=== PATIENT | male | born 1965 | race Caucasian/White ===

== ENCOUNTER 2017-08-25 19:01 | Emergency (ER) | payer OTHER ==
[~2017-08-25] VITALS: Ht 188 cm; Wt 82.0 kg
[~2017-08-25 19:01] MED LIST: ALBU0.08 INH; ASPI-183 PO; NEBULIZER/ADULT1 KIT; VENTAER INH
[2017-08-25 19:06] VITALS: BP 128/87; PULSE 89; RESP 18; TEMP 99.3; O2SAT 98
[2017-08-25] MEDS ORDERED: CHOLESTEROL MED (19:09)
--- NOTE | 2017-08-25 19:36 | PD ---
HPI Chief Complaint: Respiratory Symptoms Time Seen by Provider: 19:23 Travel History International Travel<30 days: No Contact w/Intl Traveler<30days: No Traveled to known affect area: No History of Present Illness HPI The patient is a 51 year old male who presents to the [facility] emergency department with a history of shortness of breath that worsened 2 days ago. 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 He is using a wheel chair mainly for mobility. He is unsure whether he has had any fevers, however he has had chills. He has had n/v that began 2 days ago that occurs 2 times a day. He has also had loose stool 1 x per day. He denies any blood in his stool. He has had a worsening cough with clear phlegm production. He has had a clear rhinorrhea. He has had a postnasal drip. He has had chest pain that began 2 days ago. It is coming and going. The character of the pain is a tight sensation like he cannot take a deep breath. On review of systems otherwise, the patient denies having any neck pain , abdominal pain, urinary symptoms, or new neurologic symptoms. PCP: 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 upper and lower extremity, hyperlipidemia, and COPD Medical History: Denies Significant Hx (low-dose aspirin daily) Arthritis: No Asthma: Yes (bronchitis) Autoimmune Disease: No Blood Disorders: No Anxiety: No Depression: No Heart Rhythm Problems: No Cancer: No Cardiovascular Problems: No High Cholesterol: No Chest Pain: No Congestive Heart Failure: No COPD: Yes Cerebrovascular Accident: Yes (RIGHT SIDED DEFICIT) Diabetes: No Diminished Hearing: No Endocrine: No GERD: No Genitourinary: No Headaches: No Hepatitis: No Hiatal Hernia: No Hypertension: No Immune Disorder: No Kidney Stones: No Musculoskeletal: Yes (LOW BACK INJURY 2 YEARS AGO ) Neurologic: Yes Psychiatric: No Reproductive: No Respiratory: Yes Immunizations Current: Yes Migraines: No Renal Failure: No Seizures: Yes (FROM ALCOHOL WITHDRAWL) Sickle Cell Disease: No Sleep Apnea: No Thyroid Disease: No Ulcer: No Past Surgical History Narrative Surgical hernia surgery Abdominal Surgery: Yes (HERNIA REPAIR 2014) AICD: No Appendectomy: No Arteriovenous Shunt: No Cardiac Surgery: No Cholecystectomy: No Ear Surgery: No Endocrine Surgery: No Eye Surgery: No Genitourinary Surgery: No Gynecologic Surgery: No Insulin Pump: No Joint Replacement: No Oral Surgery: No Pacemaker: No Thoracic Surgery: No Other Surgery: Yes (HERNIA REPAIR) Social History Alcohol Use: Yes (DAILY- 2 beers per day) Tobacco Use: Yes (1/2-1 PPD) Substance Use: No Allergies-Medications (Allergen,Severity, Reaction): Coded Allergies: No Known Allergies (Verified Allergy, Unknown, 08/25/17) Reported Meds & Prescriptions Reported Meds & Active Scripts Active Nebulizer/Adult Mask (N/A) 1 Kit Kit 1 Kit .ROUTE DIRECTED Ventolin Hfa 18 GM Inh (Albuterol Sulfate) 90 Mcg/Act Aer 2 Puff INH Q4-6H PRN Albuterol Neb (Albuterol Sulfate) 2.5 Mg/3 Ml Neb 2.5 Mg INH Q2HR NEB PRN Reported [Cholesterol Med] Aspirin 325 Mg Tab 325 Mg PO DAILY Review of Systems Except as stated in HPI: all other systems reviewed are Neg General / Constitutional: Positive: Chills, No: Fever Eyes: No: Visual changes HENT: Positive: Rhinorrhea, Congestion, No: Headaches Cardiovascular: Positive: Chest Pain or Discomfort, Dyspnea on exertion Respiratory: Positive: Cough, Shortness of Breath, Wheezing Gastrointestinal: Positive: Nausea, Vomiting, Diarrhea, Changes in Bowel Habits , Loss of Appetite, No: Abdominal Pain, Indigestion Genitourinary: No: Dysuria Musculoskeletal: No: Pain Skin: No Rash Neurologic: Positive: Weakness (generalized fatigue and weakness was sleeping 20 hours a day), No: Focal Abnormalities, Change in Mentation, Slurred Speech, Sensory Disturbance Psychiatric: No: Depression Endocrine: No: Polydipsia Hematologic/Lymphatic: No: Easy Bruising Physical Exam Narrative General: The patient is a well-developed well-nourished male in no acute distress. Head and Neck exam: Head is normocephalic atraumatic. Eyes: EOMI, pupils are equal round and reactive to light. Nose: Midline septum with pink mucous membranes Mouth: Dentition unremarkable. Moist mucus membranes. Posterior oropharynx is erythematous. No tonsillar hypertrophy. Uvula midline. Airway patent. Neck: No palpable lymphadenopathy. No nuchal rigidity. No thyromegaly. Cardiovascular: Regular rate and rhythm without murmurs, gallops, or rubs. Lungs: Clear to auscultation bilaterally. No wheezes, rhonchi, or rales. Abdomen: Soft, without tenderness to palpation in all 4 quadrants of the abdomen. No guarding, rebound, or rigidity. Normal bowel sounds are audible. No tenderness on palpation of McBurney's point. Negative Del Valle's sign. Extremities: No clubbing, cyanosis, or edema. 2+ pulses in all 4 extremities. No calf tenderness on palpation. Back: No spinous process tenderness to palpation. No costovertebral angle tenderness to palpation. Neurologic Exam: The patient has residual paresis of the right upper and right lower extremity. No other new focal findings on neurologic examination. Skin Exam: No rash noted. Intact skin that is warm and dry. Data Data Last Documented VS Vital Signs Date Time Temp Pulse Resp B/P (MAP) Pulse Ox O2 Delivery O2 Flow Rate FiO2 08/25/17 19:41 18 96 Room Air 08/25/17 19:06 99.3 89 128/87 (101) Orders Orders Complete Blood Count With Diff (08/25/17 19:34) Comprehensive Metabolic Panel (08/25/17 19:34) B-Type Natriuretic Peptide (08/25/17 19:34) Act Partial Throm Time (Ptt) (08/25/17 19:34) Prothrombin Time / Inr (Pt) (08/25/17 19:34) Magnesium (Mg) (08/25/17 19:34) Ckmb (Isoenzyme) Profile (08/25/17 19:34) Troponin I (08/25/17 19:34) Urinalysis - C+S If Indicated (08/25/17 19:34) Blood Culture (08/25/17 19:34) Iv Access Insert/Monitor (08/25/17 19:34) Electrocardiogram (08/25/17 19:34) Ecg Monitoring (08/25/17 19:34) Oximetry (08/25/17 19:34) Oxygen Administration (08/25/17 19:34) Chest, Single Ap (08/25/17 19:34) Sodium Chloride 0.9% Flush (Ns Flush) (08/25/17 19:45) Sodium Chlorid 0.9% 500 Ml Inj (Ns 500 M (08/25/17 20:15) Ondansetron Inj (Zofran Inj) (08/25/17 20:15) Nitroglycerin 2% Oint (Nitroglycerin 2% (08/25/17 20:15) Nitroglycerin Sl (Nitrostat Sl) (08/25/17 20:15) CKMB (08/25/17 19:56) CKMB% (08/25/17 19:56) Levofloxacin (Levaquin) (08/25/17 22:00) Prednisone (Deltasone) (08/25/17 22:00) Ed Discharge Order (08/25/17 21:51) Labs Laboratory Tests Test 08/25/17 19:56 White Blood Count 5.9 TH/MM3 Red Blood Count 5.59 MIL/MM3 Hemoglobin 17.9 GM/DL Hematocrit 51.6 % Mean Corpuscular Volume 92.4 FL Mean Corpuscular Hemoglobin 32.1 PG Mean Corpuscular Hemoglobin Concent 34.8 % Red Cell Distribution Width 15.1 % Platelet Count 172 TH/MM3 Mean Platelet Volume 7.7 FL Neutrophils (%) (Auto) 44.1 % Lymphocytes (%) (Auto) 41.4 % Monocytes (%) (Auto) 10.8 % Eosinophils (%) (Auto) 2.6 % Basophils (%) (Auto) 1.1 % Neutrophils # (Auto) 2.6 TH/MM3 Lymphocytes # (Auto) 2.4 TH/MM3 Monocytes # (Auto) 0.6 TH/MM3 Eosinophils # (Auto) 0.2 TH/MM3 Basophils # (Auto) 0.1 TH/MM3 CBC Comment AUTO DIFF Differential Comment AUTO DIFF CONFIRMED Prothrombin Time 10.0 SEC Prothromb Time International Ratio 1.0 RATIO Activated Partial Thromboplast Time 29.1 SEC Urine Color LIGHT-YELLOW Urine Turbidity CLEAR Urine pH 6.5 Urine Specific Boomer 1.002 Urine Protein NEG mg/dL Urine Glucose (UA) NEG mg/dL Urine Ketones NEG mg/dL Urine Occult Blood NEG Urine Nitrite NEG Urine Bilirubin NEG Urine Urobilinogen LESS THAN 2.0 MG/DL Urine Leukocyte Esterase NEG Urine WBC LESS THAN 1 /hpf Microscopic Urinalysis Comment CULT NOT INDICATED Blood Urea Nitrogen 3 MG/DL Creatinine 0.55 MG/DL Random Glucose 89 MG/DL Total Protein 6.9 GM/DL Albumin 3.4 GM/DL Calcium Level 7.9 MG/DL Magnesium Level 1.8 MG/DL Alkaline Phosphatase 55 U/L Aspartate Amino Transf (AST/SGOT) 177 U/L Alanine Aminotransferase (ALT/SGPT) 125 U/L Total Bilirubin 0.5 MG/DL Sodium Level 133 MEQ/L Potassium Level 3.7 MEQ/L Chloride Level 97 MEQ/L Carbon Dioxide Level 23.1 MEQ/L Anion Gap 13 MEQ/L Estimat Glomerular Filtration Rate 157 ML/MIN Total Creatine Kinase 182 U/L Creatine Kinase MB 1.5 NG/ML Troponin I LESS THAN 0.02 NG/ML B-Type Natriuretic Peptide 5 PG/ML MDM Medical Decision Making Medical Screen Exam Complete: Yes Emergency Medical Condition: Yes Medical Record Reviewed: Yes Differential Diagnosis COPD exacerbation, versus pneumonia, versus viral syndrome, versus acute coronary syndrome Narrative Course During the course of the patients emergency department visit, the patients history, examination, and differential diagnosis were reviewed with the patient. The patient was placed on a child monitor with oximetry and frequent blood pressure monitoring. The patient had IV access obtained and blood work sent for analysis. The patient had an ECG done on arrival. The patient's ECG shows a sinus rhythm with a heart rate of 88, QRS duration is 94 ms, QTC 389 ms , no acute ST segment elevation is noted. T waves are inverted in V1, V2 The patient was initially provided normal saline a 500 mL bolus 1, Zofran 4 mg IV. The patient was given Levaquin 500 mg by mouth, prednisone 20 mg by mouth 1 for COPD exacerbation associated with bronchitis. The patients laboratory studies were reviewed and remarkable for white count of 5.9, hemoglobin 17.9, platelets 172 with 10.8 monocytes, CMP is remarkable for sodium of 133, chloride 97, BUN 3, creatinine 0.55, calcium 7.9, AST 177, ALT 125 in a pattern to suggest alcohol-related hepatitis, this prior blood work reveals an elevation to his AST in the past. He reports that he was previously not drinking alcohol, however over the holidays he began to drink again. He is encouraged to quit drinking alcohol. CPK 182, troponin I less than 0.02, BNP 5 , PT PTT within normal limits. Urinalysis within normal limits. Radiology studies were reviewed and remarkable for a chest x-ray that shows no acute cardiopulmonary disease. The patient's symptoms are most consistent with a COPD exacerbation and bronchitis. The patient is encouraged to quit smoking and avoid alcohol use. He is instructed regarding the importance of close follow-up with his primary care physician for reexamination in the next 2 days. The patient is resting comfortably and feels better, is alert and in no distress. The patients results and examination findings were discussed with the patient. The repeat examination is unremarkable and benign. The history, exam, diagnostic testing, and current condition do not suggest any significant pathology to warrant further testing, continued ED treatment, admission, or surgical evaluation at this point. The vital signs have been stable. The patient does not have uncontrollable pain, intractable vomiting, or other significant symptoms. The patient's condition is stable and appropriate for discharge. The patient will pursue further outpatient evaluation with a primary care physician or other designated or consulting physician as indicated in the discharge instructions. The patient expressed understanding and was agreeable with this plan. Diagnosis Primary Impression: COPD exacerbation Additional Impression: Bronchitis Referrals: Primary Care Physician 2 days Patient Instructions: Acute Bronchitis (ED), Acute Nausea and Vomiting (ED), COPD (Chronic Obstructive Pulmonary Disease) (ED), General Instructions Med/Other Pt SpecificInfo: Prescription(s) given Scripts Promethazine (Phenergan) 25 Mg Tablet 25 MG PO Q8HR Y for NAUSEA OR VOMITING, #7 TAB 0 Refills Prov: Chloé Jeffers MD 08/25/17 Prednisone (Prednisone) 20 Mg Tab 20 MG PO BID for 5 Days, #10 TAB 0 Refills Prov: Chloé Jeffers MD 08/25/17 Levofloxacin (Levaquin) 500 Mg Tablet 500 MG PO DAILY for Infection, #9 TAB 0 Refills Prov: Chloé Jeffers MD 08/25/17 Disposition: 01 DISCHARGE HOME Condition: Stable Chloé Jeffers MD Aug 25, 2017 19:36
[2017-08-25 19:41] VITALS: RESP 18; O2SAT 96
[2017-08-25] MEDS ORDERED: SODIUM CHLORIDE 0.9% FLUSH 10 ML FLUSH IVF PRN (19:45)
--- NOTE | 2017-08-25 20:06 | RADRPT ---
EXAM DATE/TIME: 08/25/2017 19:48 [facility] COMPARISON: CHEST SINGLE AP, June 30, 2016, 12:25. INDICATIONS : Chest pain. MEDICAL HISTORY : None. SURGICAL HISTORY : None. ENCOUNTER: Initial ACUITY: 1 day PAIN SCORE: 8/10 LOCATION: Left upper chest FINDINGS: A single view of the chest demonstrates the lungs to be symmetrically aerated without evidence of mas s, infiltrate or effusion. The cardiomediastinal contours are unremarkable. Osseous structures are intact. CONCLUSION: No acute disease. Omkar Mccray MD on August 25, 2017 at 20:04 Board Certified Radiologist. This report was verified electronically.
[2017-08-25 20:12] LABS: AUTOMATED NEUTROPHIL # 2.6 TH/MM3 (1.8-7.7); BASOPHIL # 0.1 TH/MM3 (0-0.2); BASOPHIL % 1.1 % (0.0-2.0); EOSINOPHIL # 0.2 TH/MM3 (0-0.4); EOSINOPHIL % 2.6 % (0.0-4.0); HEMATOCRIT 51.6 % (39.0-51.0); HEMOGLOBIN 17.9 GM/DL (13.0-17.0); LYMPH % 41.4 % (9.0-44.0); LYMPHOCYTE # 2.4 TH/MM3 (1.0-4.8); MEAN CELL VOLUME 92.4 FL (80.0-100.0); MEAN CORPUSCULAR HEMOGLOBIN 32.1 PG (27.0-34.0); MEAN CORPUSCULAR HGB CONC 34.8 % (32.0-36.0); MEAN PLATELET VOLUME 7.7 FL (7.0-11.0); MONO % 10.8 % (0.0-8.0); MONOCYTE # 0.6 TH/MM3 (0-0.9); NEUT % 44.1 % (16.0-70.0); PLATELET COUNT 172 TH/MM3 (150-450); RED BLOOD COUNT 5.59 MIL/MM3 (4.50-5.90); RED CELL DISTRIBUTION WIDTH 15.1 % (11.6-17.2); WHITE BLOOD COUNT 5.9 TH/MM3 (4.0-11.0)
[2017-08-25] MEDS ORDERED: NITROGLYCERIN 0.4 MG SL 25 TABS/BTL SL PRN (20:15)
[2017-08-25] MEDS ORDERED: SODIUM CHLORID 0.9% 500 ML INJ 500 ML IV ONE (20:15)
[2017-08-25] MEDS ORDERED: ONDANSETRON HCL 4 MG/2 ML VIAL IV PUSH ONE (20:15)
[2017-08-25] MEDS ORDERED: NITROGLYCERIN 2% OINT 1 GM PACKET TOPICAL ONE (20:15)
[2017-08-25 20:21] LABS: BILIRUBIN, URINE NEG (NEG); BLOOD, URINE NEG (NEG); GLUCOSE,URINE NEG (NEG); KETONE, URINE NEG (NEG); NITRITE,URINE NEG (NEG); PH, URINE 6.5 (5.0-8.5); URINE COLOR LIGHT-YELLOW (YELLW/STRAW); URINE LEUKOCYTE ESTERASE NEG (NEG)
[2017-08-25 20:37] LABS: ALT (GPT) 125 U/L (12-78)
[2017-08-25 20:38] LABS: ALBUMIN 3.4 GM/DL (3.4-5.0); AST (GOT) 177 U/L (15-37); BICARBONATE 23.1 MEQ/L (21.0-32.0); BLOOD UREA NITROGEN 3 MG/DL (7-18); CALCIUM 7.9 MG/DL (8.5-10.1); CHLORIDE 97 MEQ/L (98-107); CREATININE 0.55 MG/DL (0.60-1.30); GLOMERULAR FILTRATION RATE 157 ML/MIN (>89); GLUCOSE,RANDOM 89 MG/DL (74-106); MAGNESIUM 1.8 MG/DL (1.5-2.5); SODIUM (NA) 133 MEQ/L (136-145)
[2017-08-25 20:41] LABS: ALKALINE PHOSPHATASE 55 U/L (45-117); TOTAL BILIRUBIN ADULT 0.5 MG/DL (0.2-1.0); TOTAL PROTEIN 6.9 GM/DL (6.4-8.2); TROPONIN I LESS THAN 0.02 NG/ML (0.02-0.05)
[2017-08-25] MEDS ORDERED: PRED20 PO (21:57)
[2017-08-25] MEDS ORDERED: PROM25TA10 PO (21:57)
[2017-08-25] MEDS ORDERED: LEVA500T33 PO (21:57)
[2017-08-25] MEDS ORDERED: predniSONE 20 MG TAB PO ONE (22:00)
[2017-08-25] MEDS ORDERED: LEVOFLOXACIN 500 MG TAB PO ONE (22:00)
[2017-08-25 22:05] VITALS: BP 114/71; PULSE 77; RESP 18; O2SAT 97
--- NOTE | 2017-08-27 12:39 | EKG ---
Date Performed: 08/25/2017 Time Performed: 19:10:17 PTAGE: 51 years EKG: Sinus rhythm ANTEROSEPTAL MYOCARDIAL INFARCTION Compared to prior tracing no significant change ABNORMAL ECG PREVIOUS TRACING : 06/30/2016 14.11 DOCTOR: Kiko Jeffers Interpretating Date/Time 08/27/2017 12:38:38
== END 2017-08-25 22:25 | disposition home or self-care (01) ==
LOC: NEPC 19:01
DX: J44.1 Chronic obstructive pulmonary disease with (acute) exacerbation (principal); J40 Bronchitis, not specified as acute or chronic; R94.31 Abnormal electrocardiogram [ECG] [EKG]
CPT/HCPCS: 71010; 80053; 81001; 82550; 82552; 83735; 83880; 84484; 85025; 85610; 85730; 87040; 93005; 96361; 96374; 99285; J2405; J7040; J7512

== ENCOUNTER 2017-09-02 09:45 | Emergency (ER) | payer OTHER ==
[~2017-09-02] VITALS: Ht 188 cm; Wt 78.0 kg
[~2017-09-02 09:45] MED LIST changes: +CHOLESTEROL MED; +LEVA500T33 PO; +PRED20 PO; +PROM25TA10 PO
--- NOTE | 2017-09-02 09:52 | PD ---
HPI Chief Complaint: toe discoloration Time Seen by Provider: 09:51 Travel History International Travel<30 days: No Contact w/Intl Traveler<30days: No Traveled to known affect area: No History of Present Illness HPI 51-year-old male came to the emergency room brought by EMS since this morning after he woke up his noticed that the first 3 toes of his right foot were looking purple in color. Patient was concerned about gangrene and hence 911 was called. He has history of stroke that has left him hemiplegic on the right side. He has no sensation on the right side including his right legs. He does not appear to be in any distress currently. Patient was slightly tachycardic upon arrival. Patient says that in the past 2 days he's been having a large runs. No history of vomiting. PFSH Past Medical History Narrative Medical List of his past medical, surgical, social and family history is reviewed from the nursing note. Arthritis: No Asthma: Yes (bronchitis) Autoimmune Disease: No Blood Disorders: No Anxiety: No Depression: No Heart Rhythm Problems: No Cancer: No Cardiovascular Problems: No High Cholesterol: No Chest Pain: No Congestive Heart Failure: No COPD: Yes Cerebrovascular Accident: Yes (RIGHT SIDED DEFICIT) Diabetes: No Diminished Hearing: No Endocrine: No GERD: No Genitourinary: No Headaches: No Hepatitis: No Hiatal Hernia: No Hypertension: No Immune Disorder: No Kidney Stones: No Musculoskeletal: Yes (LOW BACK INJURY 2 YEARS AGO ) Neurologic: Yes Psychiatric: No Reproductive: No Respiratory: Yes Immunizations Current: Yes Migraines: No Renal Failure: No Seizures: Yes (FROM ALCOHOL WITHDRAWL) Sickle Cell Disease: No Sleep Apnea: No Thyroid Disease: No Ulcer: No Past Surgical History Abdominal Surgery: Yes (HERNIA REPAIR 2014) AICD: No Appendectomy: No Arteriovenous Shunt: No Cardiac Surgery: No Cholecystectomy: No Ear Surgery: No Endocrine Surgery: No Eye Surgery: No Genitourinary Surgery: No Gynecologic Surgery: No Insulin Pump: No Joint Replacement: No Oral Surgery: No Pacemaker: No Thoracic Surgery: No Other Surgery: Yes (HERNIA REPAIR) Social History Alcohol Use: Yes (DAILY- 2 beers per day) Tobacco Use: Yes (12-1 PPD) Substance Use: No Allergies-Medications (Allergen,Severity, Reaction): Coded Allergies: No Known Allergies (Verified Allergy, Unknown, 09/02/17) Comments No known drug allergies. Reported Meds & Prescriptions Reported Meds & Active Scripts Active Phenergan (Promethazine HCl) 25 Mg Tablet 25 Mg PO Q8HR PRN Prednisone 20 Mg Tab 20 Mg PO BID 5 Days Levaquin (Levofloxacin) 500 Mg Tablet 500 Mg PO DAILY Nebulizer/Adult Mask (N/A) 1 Kit Kit 1 Kit .ROUTE DIRECTED Ventolin Hfa 18 GM Inh (Albuterol Sulfate) 90 Mcg/Act Aer 2 Puff INH Q4-6H PRN Albuterol Neb (Albuterol Sulfate) 2.5 Mg/3 Ml Neb 2.5 Mg INH Q2HR NEB PRN Reported [Cholesterol Med] Aspirin 325 Mg Tab 81 Mg PO DAILY Narrative Medication List of his home medications reviewed from the nursing note. Review of Systems Except as stated in HPI: all other systems reviewed are Neg Physical Exam Narrative GENERAL: Awake, alert, no obvious distress SKIN: Focused skin assessment warm/dry. Slight duskiness of the right foot first 3 toes. Cap refill is 4 seconds. HEAD: Atraumatic. Normocephalic. EYES: Pupils equal and round. No scleral icterus. No injection or drainage. ENT: No nasal bleeding or discharge. Mucous membranes pink and moist. NECK: Trachea midline. No JVD. CARDIOVASCULAR: Regular rate and rhythm. No murmur appreciated. RESPIRATORY: No accessory muscle use. Clear to auscultation. Breath sounds equal bilaterally. GASTROINTESTINAL: Abdomen soft, non-tender, nondistended. Hepatic and splenic margins not palpable. MUSCULOSKELETAL: No obvious deformities. No clubbing. No cyanosis. No edema. Faint dorsalis pedis pulses through Doppler. NEUROLOGICAL: Awake and alert. No obvious cranial nerve deficits. Motor grossly within normal limits. Normal speech. PSYCHIATRIC: Appropriate mood and affect; insight and judgment normal. Data Data Last Documented VS Vital Signs Date Time Temp Pulse Resp B/P (MAP) Pulse Ox O2 Delivery O2 Flow Rate FiO2 09/02/17 15:48 09/02/17 14:48 99.6 90 19 97 Room Air Orders Orders Electrocardiogram (09/02/17 10:04) Basic Metabolic Panel (Bmp) (09/02/17 10:04) Ckmb (Isoenzyme) Profile (09/02/17 10:04) Complete Blood Count With Diff (09/02/17 10:04) Magnesium (Mg) (09/02/17 10:04) Prothrombin Time / Inr (Pt) (09/02/17 10:04) Troponin I (09/02/17 10:04) Chest, Single Ap (09/02/17 10:04) Ecg Monitoring (09/02/17 10:04) Bilateral Bp Monitoring (09/02/17 10:04) Iv Access Insert/Monitor (09/02/17 10:04) Oximetry (09/02/17 10:04) Oxygen Administration (09/02/17 10:04) Sodium Chloride 0.9% Flush (Ns Flush) (09/02/17 10:15) Sodium Chlor 0.9% 1000 Ml Inj (Ns 1000 M (09/02/17 10:15) Cta Runoff W Iv Contrast W 3d (09/02/17 ) Iohexol 350 Inj (Omnipaque 350 Inj) (09/02/17 14:21) Ed Discharge Order (09/02/17 15:09) Labs Laboratory Tests Test 09/02/17 10:12 09/02/17 11:47 White Blood Count 5.4 TH/MM3 Red Blood Count 5.55 MIL/MM3 Hemoglobin 17.9 GM/DL Hematocrit 51.9 % Mean Corpuscular Volume 93.5 FL Mean Corpuscular Hemoglobin 32.2 PG Mean Corpuscular Hemoglobin Concent 34.4 % Red Cell Distribution Width 15.2 % Platelet Count 120 TH/MM3 Mean Platelet Volume 8.6 FL Neutrophils (%) (Auto) 63.4 % Lymphocytes (%) (Auto) 22.7 % Monocytes (%) (Auto) 11.4 % Eosinophils (%) (Auto) 2.0 % Basophils (%) (Auto) 0.5 % Neutrophils # (Auto) 3.4 TH/MM3 Lymphocytes # (Auto) 1.2 TH/MM3 Monocytes # (Auto) 0.6 TH/MM3 Eosinophils # (Auto) 0.1 TH/MM3 Basophils # (Auto) 0.0 TH/MM3 CBC Comment DIFF FINAL Differential Comment Prothrombin Time 9.9 SEC Prothromb Time International Ratio 1.0 RATIO Blood Urea Nitrogen 4 MG/DL Creatinine 0.52 MG/DL Random Glucose 83 MG/DL Calcium Level 7.8 MG/DL Magnesium Level 2.0 MG/DL Sodium Level 139 MEQ/L Potassium Level 3.6 MEQ/L Chloride Level 107 MEQ/L Carbon Dioxide Level 21.6 MEQ/L Anion Gap 10 MEQ/L Estimat Glomerular Filtration Rate 168 ML/MIN Total Creatine Kinase 91 U/L Troponin I LESS THAN 0.02 NG/ML MDM Medical Decision Making Medical Screen Exam Complete: Yes Emergency Medical Condition: Yes Medical Record Reviewed: Yes Interpretation(s) Twelve-lead EKG was reviewed by me. Normal sinus rhythm, normal axis, nonspecific ST-T wave changes. Heart rate of 79 bpm. Differential Diagnosis Peripheral vascular disease, emboli Narrative Course 1:[address] angiogram of the lower extremities to be done and resulted. Blood test results are within normal limits. 1:[address] scan has been done, awaiting for the report. 3:[address] scan report just came back and looks fine. There are no occlusions. I'll discharge the patient home. 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 Follow-up with your primary care. Return to ER if condition worsens or any other new concerns. Disposition: 01 DISCHARGE HOME Condition: Stable Duran Aburto MD Sep 02, 2017 09:51
[2017-09-02 10:01] VITALS: BP 126/75; PULSE 105; RESP 18; TEMP 99.5; O2SAT 97
[2017-09-02 10:08] VITALS: O2SAT 96
[2017-09-02] MEDS ORDERED: SODIUM CHLORIDE 0.9% FLUSH 10 ML FLUSH IVF PRN (10:15)
[2017-09-02] MEDS ORDERED: SODIUM CHLOR 0.9% 1000 ML INJ 1,000 ML IV ONE (10:15)
[2017-09-02 10:21] LABS: AUTOMATED NEUTROPHIL # 3.4 TH/MM3 (1.8-7.7); BASOPHIL % 0.5 % (0.0-2.0); EOSINOPHIL # 0.1 TH/MM3 (0-0.4); HEMATOCRIT 51.9 % (39.0-51.0); HEMOGLOBIN 17.9 GM/DL (13.0-17.0); LYMPH % 22.7 % (9.0-44.0); LYMPHOCYTE # 1.2 TH/MM3 (1.0-4.8); MEAN CELL VOLUME 93.5 FL (80.0-100.0); MEAN CORPUSCULAR HEMOGLOBIN 32.2 PG (27.0-34.0); MEAN CORPUSCULAR HGB CONC 34.4 % (32.0-36.0); MEAN PLATELET VOLUME 8.6 FL (7.0-11.0); MONO % 11.4 % (0.0-8.0); MONOCYTE # 0.6 TH/MM3 (0-0.9); NEUT % 63.4 % (16.0-70.0); PLATELET COUNT 120 TH/MM3 (150-450); RED BLOOD COUNT 5.55 MIL/MM3 (4.50-5.90); RED CELL DISTRIBUTION WIDTH 15.2 % (11.6-17.2); WHITE BLOOD COUNT 5.4 TH/MM3 (4.0-11.0)
[2017-09-02 10:29] LABS: PROTHROMBIN TIME - PATIENT 9.9 SEC (9.8-11.6)
--- NOTE | 2017-09-02 10:37 | RADRPT ---
EXAM DATE/TIME: 09/02/2017 10:15 [facility] COMPARISON: CHEST SINGLE AP, August 25, 2017, 19:48. INDICATIONS : Cough. MEDICAL HISTORY : Chronic obstructive pulmonary disease. Current smoker. SURGICAL HISTORY : None. ENCOUNTER: Initial ACUITY: 1 day PAIN SCORE: 0/10 LOCATION: Bilateral chest. FINDINGS: A single view of the chest demonstrates the lungs to be symmetrically aerated without evidence of mas s, infiltrate or effusion. The cardiomediastinal contours are unremarkable. Osseous structures are intact. CONCLUSION: No acute disease. Adán Barriga MD on September 02, 2017 at 10:35 Board Certified Radiologist. This report was verified electronically.
[2017-09-02 12:23] LABS: BICARBONATE 21.6 MEQ/L (21.0-32.0); BLOOD UREA NITROGEN 4 MG/DL (7-18); CALCIUM 7.8 MG/DL (8.5-10.1); CHLORIDE 107 MEQ/L (98-107); CREATININE 0.52 MG/DL (0.60-1.30); GLOMERULAR FILTRATION RATE 168 ML/MIN (>89); GLUCOSE,RANDOM 83 MG/DL (74-106); SODIUM (NA) 139 MEQ/L (136-145); TROPONIN I LESS THAN 0.02 NG/ML (0.02-0.05)
[2017-09-02] MEDS ORDERED: IOHEXOL 350 MG/ML 10 ML VIAL (for RAD DIAG) IVCONTRAST ONE (14:21)
[2017-09-02 14:48] VITALS: BP 122/86; PULSE 90; RESP 19; TEMP 99.6; O2SAT 97
--- NOTE | 2017-09-02 14:55 | RADRPT ---
EXAM DATE/TIME: 09/02/2017 13:24 [facility] COMPARISON: No previous studies available for comparison. INDICATIONS : Right toes blackening. Evaluate for occlusion. IV CONTRAST: 100 cc Omnipaque 350 (iohexol) IV RADIATION DOSE: 14.22 CTDIvol (mGy) MEDICAL HISTORY : Chronic obstructive pulmonary disease. Cerebrovascular disease. Right side paralysis SURGICAL HISTORY : Inguinal hernia repair. ENCOUNTER: Initial ACUITY: 3 days PAIN SCALE: 0/10 LOCATION: distal TECHNIQUE: Volumetric scanning was performed using a multi-row detector CT scanner. The data was post processed with a variety of visualization algorithms including full volume maximum intensity projection, multi -planar sliding thin slab reformation, curved planar reformation, and surface rendering techniques. Using automated exposure control and adjustment of the mA and/or kV according to patient size, radiat ion dose was kept as low as reasonably achievable to obtain optimal diagnostic quality images. DICO M format image data is available electronically for review and comparison. FINDINGS: The liver and spleen are free of focal defects. The gallbladder and pancreas demonstrate no abnormali ty. The adrenal glands are normal. The kidneys demonstrate no evidence of solid renal mass or hydrone phrosis. No free fluid or abdominal masses are identified. No para-aortic adenopathy is seen. Examina tion of the pelvis demonstrates no evidence of free fluid or pelvic mass. No abnormally enlarged ingu inal or retroperitoneal lymph nodes are present. The bladder is unremarkable. There is diverticulosis without evidence of diverticulitis. The aorta is normal in caliber. There is no evidence of aneurysm or dissection. The renal artery orig ins are patent bilaterally. The celiac axis and superior mesenteric artery origins are also patent. T he left gastric artery arises directly from the aorta which can be seen as a normal variation. Examination of the right lower extremity demonstrates no evidence of inflow stenosis. The common femo ral artery is patent. The superficial femoral artery is widely patent. The popliteal segment is unrem arkable. There is three-vessel runoff to the ankle. There are multiple benign cystic areas involving the distal femur extending to the articular surface as well as involving the proximal tibia. The etio logy is uncertain. MRI is recommended for further evaluation if clinically indicated. This can be per formed on an elective basis. Examination of the left lower extremity demonstrates no evidence of inflow stenosis. The common femor al artery is patent. The superficial femoral artery is widely patent. The popliteal segment is unrema rkable. There is three-vessel runoff to the ankle. CONCLUSION: 1. Unremarkable CT angiography of the abdominal aorta and lower extremities. 2. Numerous cystic areas in the distal femur proximal right tibia as above of uncertain etiology. Ple ase see above. Aaron Pendleton MD on September 02, 2017 at 14:46 Board Certified Radiologist. This report was verified electronically.
--- NOTE | 2017-09-03 13:56 | EKG ---
Date Performed: 09/02/2017 Time Performed: 10:41:35 PTAGE: 51 years EKG: POSSIBLE SEPTAL MYOCARDIAL INFARCTION OF UNDETERMINED AGE Since previous tracing, no signif icant change noted ABNORMAL ECG PREVIOUS TRACING : 08/25/2017 19.10 DOCTOR: Joey Massey Interpretating Date/Time 09/03/2017 13:55:31
== END 2017-09-02 15:48 | disposition home or self-care (01) ==
LOC: NEPC 09:45
DX: R23.0 Cyanosis (principal); G81.91 Hemiplegia, unspecified affecting right dominant side; R00.0 Tachycardia, unspecified; R94.31 Abnormal electrocardiogram [ECG] [EKG]; J44.9 Chronic obstructive pulmonary disease, unspecified; Z72.0 Tobacco use; Z72.89 Other problems related to lifestyle
CPT/HCPCS: 71045; 75635; 80048; 82550; 83735; 84484; 85025; 85610; 93005; 96360; 99285; J7030; Q9967

== ENCOUNTER 2018-10-15 13:43 | Inpatient (IN) ==
[2018-10-15 15:09] LABS: Baso # (Auto) 0.1 th/mm3 (0.0-0.2); Baso % (Auto) 1.2 % (0.0-2.0); Eos # (Auto) 0.1 th/mm3 (0.0-0.4); Eos % (Auto) 2.4 % (0.0-4.0); Hematocrit 47.1 % (39.0-51.0); Hemoglobin 16.6 gm/dL (13.0-17.0); Lymph # (Auto) 1.3 th/mm3 (1.0-4.8); Lymph % (Auto) 31.9 % (9.0-44.0); Mean Corpuscular HGB Conc 35.3 % (32.0-36.0); Mean Corpuscular Hemoglobin 34.8 pg (27.0-34.0); Mean Corpuscular Volume 98.5 fL (80.0-100.0); Mono # (Auto) 0.7 th/mm3 (0.0-0.9); Mono % (Auto) 16.3 % (0.0-8.0); Neut % (Auto) 48.2 % (16.0-70.0); Platelet Count 81 th/mm3 (150-450); Red Blood Count 4.79 mil/mm3 (4.50-5.90); White Blood Count 4.2 th/mm3 (4.0-11.0)
[2018-10-15 15:34] LABS: Alanine Aminotransferase 232 U/L (12-78); Albumin 3.6 g/dL (3.4-5.0); Anion Gap 10 meq/L (5-15); Aspartate Aminotransferase 265 U/L (15-37); Blood Urea Nitrogen 2 mg/dL (7-18); Calcium 8.1 mg/dL (8.5-10.1); Carbon Dioxide 21.5 meq/L (21.0-32.0); Chloride 97 meq/L (98-107); Glomerular Filtration Rate Greater Than 89 mL/min (>89); Glucose,Random 81 mg/dL (74-106); Magnesium 1.9 mg/dL (1.5-2.5); Sodium 128 meq/L (136-145)
[2018-10-15 15:35] LABS: Alcohol 175 mg/dL (0-5); Potassium 4.4 meq/L (3.5-5.1)
[2018-10-15 15:38] LABS: Alkaline Phosphatase 63 U/L (45-117); Total Protein 7.5 g/dL (6.4-8.2)
--- NOTE | 2018-10-15 15:48 | ED ---
HPI General Chief Complaint: Psychiatric Symptoms Stated Complaint: Psych eval / [employer] Time Seen by Provider: 10/15/18 14:06 Source: patient and police Mode of arrival: other (police) Limitations: no limitations History of Present Illness HPI Narrative: Patient is a 53-year-old male [facility] under Torrez act for psychiatric evaluation. Patient reports multiple stressors with his family situation. He reports that he has a good home and a good however he argues with his sister and his brother. He states this upsets him because of the only family that he has. He also reports chronic health conditions secondary to having a stroke 3 years ago. He states that he does not have good use of the right side of his body and can no longer care for himself like he used to. This is also very frustrating and depressing to him. He denies any previous suicide attempt. He denies any physical complaints at this time. He denies any new weakness, headaches, shortness of breath, chest pain, abdominal pain, headaches. MD complaint: Reports suicidal ideation and feels depressed Onset (ago): week(s) Duration: changing over time History of same: Yes Relieving factors: none Exacerbating factors: alcohol Context: Reports recent alcohol abuse and significant life stressor Associated psychiatric symptoms: Reports depression and suicidal ideation Associated symptoms: Reports denies other symptoms Treatments prior to arrival: Reports none Related Data Home Medications Medication Instructions Recorded Confirmed aspirin [Janusz Chewable Aspirin] 81 mg PO DAILY 10/15/18 10/15/18 atorvastatin 40 mg PO DAILY 10/15/18 10/15/18 multivitamin 1 tab PO DAILY 10/15/18 10/15/18 omeprazole 20 mg PO BID 10/15/18 10/15/18 Allergies Allergy/AdvReac Type Severity Reaction Status Date / Time No Known Allergies Allergy Verified 10/15/18 16:36 Review of Systems ROS: all other systems reviewed are negative [facility] Medical History Medical History Hyperlipidemia (Acute) Seizure (Acute) Stroke (Acute) Surgical History Surgical History H/O hernia repair (Acute) Social History Social History Substance History: Active Abuse and Past History Second Hand Smoke Exposure: Yes Smoking Status: Current every day smoker Tobacco Type: Cigarettes How Often Do You Have a Drink Containing Alcohol: 4 or more times a week Immunization History Tetanus Immunization: Unsure Exam Narrative Exam Narrative: GENERAL: Slightly disheveled, well-developed, well-nourished, alert male. Presenting in no acute distress. SKIN: Focused skin assessment warm/dry. HEAD: Atraumatic. Normocephalic. EYES: Pupils equal and round. No scleral icterus. No injection or drainage. ENT: No nasal bleeding or discharge. Mucous membranes pink and moist. NECK: Trachea midline. No JVD. CARDIOVASCULAR: Regular rate and rhythm. No murmur appreciated. RESPIRATORY: No accessory muscle use. Clear to auscultation. Breath sounds equal bilaterally. GASTROINTESTINAL: Abdomen soft, non-tender, nondistended. Hepatic and splenic margins not palpable. MUSCULOSKELETAL: No obvious deformities. No clubbing. No cyanosis. No edema. NEUROLOGICAL: Awake and alert. No obvious cranial nerve deficits. Motor grossly within normal limits. Normal speech. PSYCHIATRIC: Depressed mood and affect; insight and judgment normal. Course Initial Documented Vital Signs Temperature 98.3 F 10/15/18 14:03 Pulse Rate 91 H 10/15/18 14:03 Respiratory Rate 16 10/15/18 14:03 Blood Pressure 126/77 10/15/18 14:03 Pulse Oximetry 96 10/15/18 14:03 Last Documented Vital Signs Temperature 97.8 F 10/17/18 06:00 Pulse Rate 75 10/17/18 06:00 Respiratory Rate 15 10/17/18 06:00 Blood Pressure 147/85 H 10/17/18 06:00 Pulse Oximetry 93 L 10/17/18 06:00 Medical Decision Making [facility] Narrative Medical decision making narrative: Patient presented under Torrez act for psychiatric evaluation. Patient reports multiple life stressors including issues with his family relationships with his brother and his sister. He reports that he cannot get around after his stroke like he used to and this is also depressing to him. Mental health screening discussed with the patient. Psychiatric screen ordered. Labs reviewed, no acute findings identified. Patient is medically cleared for psychiatric evaluation. Medical Screen Exam Complete: Yes Emergency Medical Condition: Yes Lab Data Lab results reviewed: Yes I reviewed the patient's lab results. Result diagrams: 10/15/18 14:40 10/16/18 06:25 Lab Results 10/15/18 10/15/18 10/15/18 Range/Units 14:40 14:40 15:30 WBC 4.2 (4.0-11.0) th/mm3 RBC 4.79 (4.50-5.90) mil/mm3 Hgb 16.6 (13.0-17.0) gm/dL Hct 47.1 (39.0-51.0) % MCV 98.5 (80.0-100.0) fL MCH 34.8 H (27.0-34.0) pg MCHC 35.3 (32.0-36.0) % RDW 14.0 (11.6-17.2) % Plt Count 81 L (150-450) th/mm3 MPV 10.0 (7.0-11.0) fL Prelim Diff (Auto) Slide review pending Neut % (Auto) 48.2 (16.0-70.0) % Lymph % (Auto) 31.9 (9.0-44.0) % Baker % (Auto) 16.3 H (0.0-8.0) % Eos % (Auto) 2.4 (0.0-4.0) % Baso % (Auto) 1.2 (0.0-2.0) % Neut # (Auto) 2.0 (1.8-7.7) th/mm3 Lymph # (Auto) 1.3 (1.0-4.8) th/mm3 Baker # (Auto) 0.7 (0.0-0.9) th/mm3 Eos # (Auto) 0.1 (0.0-0.4) th/mm3 Baso # (Auto) 0.1 (0.0-0.2) th/mm3 WBC Differential . Diff Scan Auto diff confirmed Differential Comment . Sodium 128 L (136-145) meq/L Potassium 4.4 (3.5-5.1) meq/L Chloride 97 L (98-107) meq/L Carbon Dioxide 21.5 (21.0-32.0) meq/L Anion Gap 10 (5-15) meq/L BUN 2 L (7-18) mg/dL Creatinine 0.47 L (0.60-1.30) mg/dL Estimated GFR Greater than 89 (>89) mL/min Random Glucose 81 (74-106) mg/dL Hemoglobin A1c (4.3-6.0) % Calcium 8.1 L (8.5-10.1) mg/dL Magnesium 1.9 (1.5-2.5) mg/dL Total Bilirubin 0.8 (0.2-1.0) mg/dL AST 265 H (15-37) U/L ALT 232 H (12-78) U/L Alkaline Phosphatase 63 (45-117) U/L Total Protein 7.5 (6.4-8.2) g/dL Albumin 3.6 (3.4-5.0) g/dL Triglycerides (42-150) mg/dL Cholesterol (120-200) mg/dL LDL Cholesterol, Calc (0-99) mg/dL HDL Cholesterol (40.0-60.0) mg/dL Cholesterol/HDL Ratio Ratio TSH 1.810 (0.358-3.740) uIU/mL Urine Opiates Screen Neg (Neg) Ur Barbiturates Screen Neg (Neg) Ur Amphetamines Screen Neg (Neg) U Benzodiazepines Scrn Neg (Neg) Urine Cocaine Screen Neg (Neg) U Cannabinoids Screen Neg (Neg) Serum Alcohol 175 H (0-5) mg/dL 10/16/18 10/16/18 Range/Units 06:25 06:25 WBC (4.0-11.0) th/mm3 RBC (4.50-5.90) mil/mm3 Hgb (13.0-17.0) gm/dL Hct (39.0-51.0) % MCV (80.0-100.0) fL MCH (27.0-34.0) pg MCHC (32.0-36.0) % RDW (11.6-17.2) % Plt Count (150-450) th/mm3 MPV (7.0-11.0) fL Prelim Diff (Auto) Neut % (Auto) (16.0-70.0) % Lymph % (Auto) (9.0-44.0) % Baker % (Auto) (0.0-8.0) % Eos % (Auto) (0.0-4.0) % Baso % (Auto) (0.0-2.0) % Neut # (Auto) (1.8-7.7) th/mm3 Lymph # (Auto) (1.0-4.8) th/mm3 Baker # (Auto) (0.0-0.9) th/mm3 Eos # (Auto) (0.0-0.4) th/mm3 Baso # (Auto) (0.0-0.2) th/mm3 WBC Differential Diff Scan Differential Comment Sodium 136 (136-145) meq/L Potassium 3.6 D (3.5-5.1) meq/L Chloride 101 (98-107) meq/L Carbon Dioxide 26.8 (21.0-32.0) meq/L Anion Gap 8 (5-15) meq/L BUN 5 L (7-18) mg/dL Creatinine 0.58 L (0.60-1.30) mg/dL Estimated GFR Greater than 89 (>89) mL/min Random Glucose 83 (74-106) mg/dL Hemoglobin A1c 5.8 (4.3-6.0) % Calcium 8.6 (8.5-10.1) mg/dL Magnesium (1.5-2.5) mg/dL Total Bilirubin (0.2-1.0) mg/dL AST (15-37) U/L ALT (12-78) U/L Alkaline Phosphatase (45-117) U/L Total Protein (6.4-8.2) g/dL Albumin (3.4-5.0) g/dL Triglycerides 53 (42-150) mg/dL Cholesterol 159 (120-200) mg/dL LDL Cholesterol, Calc 71 (0-99) mg/dL HDL Cholesterol 77.1 H (40.0-60.0) mg/dL Cholesterol/HDL Ratio 2.06 Ratio TSH (0.358-3.740) uIU/mL Urine Opiates Screen (Neg) Ur Barbiturates Screen (Neg) Ur Amphetamines Screen (Neg) U Benzodiazepines Scrn (Neg) Urine Cocaine Screen (Neg) U Cannabinoids Screen (Neg) Serum Alcohol (0-5) mg/dL Discharge Plan Discharge Disposition Patient Disposition: ED Admit(ED Internal Use Only) Discharge Condition Condition: Stable Discharge Order Discharge Orders: ED Use Only Admit Order (Routine); Ordered 10/15/18 Ordered By: Madeleine Chaves Discharge Details Diagnosis: Medical clearance for psychiatric admission Physicians Team ED Provider: Coleen Wolf ED Midlevel Provider: Gudelia Thomas Primary Care Provider: [facility]ician 's Attending Provider: Darren Glez Status ED Status: Left Department Discharge Information Discharge Date/Time: 10/15/18 17:35
[2018-10-15 16:02] LABS: Amphetamine Screen,Urine Neg (Neg); Barbiturate Screen,Urine Neg (Neg); Cannabinoid Screen,Urine Neg (Neg); Cocaine Screen,Urine Neg (Neg); Opiate Screen,Urine Neg (Neg)
[2018-10-15] MEDS ORDERED: Ibuprofen 600 MG Tablet PO PRN (17:07)
[2018-10-15] MEDS ORDERED: Aluminum/Magnesium/Simethacone Susp 30 ML UDC PO PRN (17:07)
[2018-10-15] MEDS ORDERED: LORazepam 1 MG Tablet PO PRN (17:10)
[2018-10-15] MEDS ORDERED: Haloperidol Inj 5 MG/ML Ampul IM PRN (17:10)
--- NOTE | 2018-10-15 17:19 | ED ---
HPI - Psych - General Time Seen by Psych Provider: 16:52 Source: patient, police Mode of arrival: other (police) Limitations: physical limitation - History of Present Illness MD complaint: suicidal ideation, feels depressed Onset (ago): day(s) Duration: changing over time, getting worse History of same: Yes Relieving factors: none Exacerbating factors: alcohol Context: recent alcohol abuse Associated psychiatric symptoms: depression, suicidal ideation Associated symptoms: denies other symptoms Treatments prior to arrival: none If self harm: admits thoughts of self harm - General Chief Complaint: Psychiatric Symptoms Stated Complaint: Psych eval / [employer] Time Seen by Provider: 10/15/18 14:06 - History of Present Illness HPI Narrative: This is a 53-year-old , hemiplegic, male who presents under police initiated Torrez act to this facility for suicidal ideation. The patient is known to this facility but not to this department. Reviewed electronic medical record, labs, discussed case with staff. Patient initially presented with a blood alcohol level of 0.175. He is seen in his room in B19. Patient is awake, alert, and oriented x4. His speech is clear, logical, organized, of normal luh and volume. He reports intermittent suicidal ideation with no concrete plan at this time. He denies homicidal ideation, auditory and visual hallucinations. I can elicit no delusional material. There is no indication of psychosis nor of kole. He reports his mood is sad and his affect is congruent. Patient reports that he suffered a CVA approximately 3 years ago which left him with extremely limited use of his left side. He states, "I cannot take it anymore and I do not want to live anymore". He denies any previous admissions for psychiatric illness and denies being treated outpatient. He does report an incident 30 years ago when he tried to hang himself. He reports that he is born and raised in [place], lives with his , and is a high school graduate. 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 He denies owning firearms. He denies a familial history of mental illness. He denies any physical or sexual abuse. He reports that he served in the [employer] for approximately 6-1/2 years. He does follow up with the [employer] [facility]. He reports that he has previously been incarcerated for DUIs and child support, but states that his longest time in fdc was approximately 6 days. He lists his external stressors as recent family problems with his father, brother, and sister. He does report chronic alcoholism stating that he drinks 10-12 beers per day and has had seizures years ago in the context of discontinuing alcohol consumption. He reports over the past week experiencing insomnia, decreased appetite, and anhedonia. (Madeleine Chaves) - Related Data Home Medications Medication Instructions Recorded Confirmed aspirin [Janusz Chewable Aspirin] 81 mg PO DAILY 10/15/18 10/15/18 atorvastatin 40 mg PO DAILY 10/15/18 10/15/18 multivitamin 1 tab PO DAILY 10/15/18 10/15/18 omeprazole 20 mg PO BID 10/15/18 10/15/18 Allergies Allergy/AdvReac Type Severity Reaction Status Date / Time No Known Allergies Allergy Verified 10/15/18 16:36 Review of Systems All other systems reviewed negative except as stated in HPI [facility] - History History Provided By: Patient - Medical History Medical History: Medical History (Last Reviewed 10/15/18 @ 17:25 by HARRIET Maldonado) Hyperlipidemia Seizure Stroke - Surgical History Surgical History: Surgical History (Last Reviewed 10/15/18 @ 17:25 by HARRIET Maldonado) H/O hernia repair - Tobacco History Second Hand Smoke Exposure: Yes Tobacco Use In Past 30 Days: Yes Smoking Status: Current every day smoker Tobacco Type: Cigarettes - Alcohol History How Often Do You Have a Drink Containing Alcohol: 4 or more times a week - Substance Use History Substance History: No History of Abuse - Immunization History Tetanus Immunization: Unsure Psychiatric History - Psychiatric History Psychiatric Treatment History: History Substance Abuse Treatment History of Inpatient Treatment: No Firearms in Home: No - Psychiatric History Denies (Madeleine Chaves) - Legal History Short fdc time for DUIs and child support (Madeleine Chaves) - Family Psychiatric History Denies (Madeleine Chaves) Physical Exam - General Limitations: physical limitation General appearance: alert, in no apparent distress - Head Head exam: atraumatic - Neurological Exam Neurological exam: Present: alert, oriented X3 - Psychiatric Psychiatric exam: Present: depressed - Skin Skin exam: Present: warm, dry Mental Status Examination Appearance: Appropriate Consciousness: Alert Orientation: x4 Motor Activity: Other (Hemiplegic) Language: Adequate Fund of Knowledge: Adequate Attention and Concentration: Adequate Memory: Unremarkable Mood: Sad Affect: Sad Thought Process & Associations: Intact, Logical Thought Content: Appropriate Hallucination Type: None Delusion Type: None Suicidal Ideation: Yes Suicidal Plan: No Suicidal Intention: No Homicidal Ideation: No Homicidal Plan: No Homicidal Intention: No Insight: Adequate Judgment: Adequate Initial Documented Vital Signs Temperature 98.3 F 10/15/18 14:03 Pulse Rate 91 H 10/15/18 14:03 Respiratory Rate 16 10/15/18 14:03 Blood Pressure 126/77 10/15/18 14:03 Pulse Oximetry 96 10/15/18 14:03 Last Documented Vital Signs Temperature 98.3 F 10/15/18 14:03 Pulse Rate 88 10/15/18 14:10 Respiratory Rate 16 10/15/18 14:10 Blood Pressure 112/74 10/15/18 14:10 Pulse Oximetry 95 10/15/18 14:10 MDM - Psych - Diagnosis (1) Major depressive disorder Code(s): F32.9 - Major depressive disorder, single episode, unspecified Status : Acute - Lab Data Result diagrams: 10/15/18 14:40 10/15/18 14:40 - [facility] Narrative Medical decision making narrative: Given that this patient is endorsing suicidal ideation and has a significant medical condition which has altered his life I do feel he meets inpatient admission criteria. He is requesting help with his depression. Given his report of previous withdrawal seizures I have entered a [facility] protocol. Verbal consent for as needed hydroxyzine and diphenhydramine were obtained with nurse Deepa Springer signing as witness. These medications will be available to him for anxiety and insomnia respectively. He will be admitted to a locked inpatient psychiatric unit for further evaluation and treatment as deemed necessary. (Madeleine Chaves) - Lab Data Lab Results 10/15/18 10/15/18 10/15/18 Range/Units 14:40 14:40 15:30 WBC 4.2 (4.0-11.0) th/mm3 RBC 4.79 (4.50-5.90) mil/mm3 Hgb 16.6 (13.0-17.0) gm/dL Hct 47.1 (39.0-51.0) % MCV 98.5 (80.0-100.0) fL MCH 34.8 H (27.0-34.0) pg MCHC 35.3 (32.0-36.0) % RDW 14.0 (11.6-17.2) % Plt Count 81 L (150-450) th/mm3 MPV 10.0 (7.0-11.0) fL Prelim Diff (Auto) Slide review pending Neut % (Auto) 48.2 (16.0-70.0) % Lymph % (Auto) 31.9 (9.0-44.0) % [place] % (Auto) 16.3 H (0.0-8.0) % Eos % (Auto) 2.4 (0.0-4.0) % Baso % (Auto) 1.2 (0.0-2.0) % Neut # (Auto) 2.0 (1.8-7.7) th/mm3 Lymph # (Auto) 1.3 (1.0-4.8) th/mm3 [place] # (Auto) 0.7 (0.0-0.9) th/mm3 Eos # (Auto) 0.1 (0.0-0.4) th/mm3 Baso # (Auto) 0.1 (0.0-0.2) th/mm3 WBC Differential . Diff Scan Auto diff confirmed Differential Comment . Sodium 128 L (136-145) meq/L Potassium 4.4 (3.5-5.1) meq/L Chloride 97 L (98-107) meq/L Carbon Dioxide 21.5 (21.0-32.0) meq/L Anion Gap 10 (5-15) meq/L BUN 2 L (7-18) mg/dL Creatinine 0.47 L (0.60-1.30) mg/dL Estimated GFR Greater than 89 (>89) mL/min Random Glucose 81 (74-106) mg/dL Calcium 8.1 L (8.5-10.1) mg/dL Magnesium 1.9 (1.5-2.5) mg/dL Total Bilirubin 0.8 (0.2-1.0) mg/dL AST 265 H (15-37) U/L ALT 232 H (12-78) U/L Alkaline Phosphatase 63 (45-117) U/L Total Protein 7.5 (6.4-8.2) g/dL Albumin 3.6 (3.4-5.0) g/dL TSH 1.810 (0.358-3.740) uIU/mL Urine Opiates Screen Neg (Neg) Ur Barbiturates Screen Neg (Neg) Ur Amphetamines Screen Neg (Neg) U Benzodiazepines Scrn Neg (Neg) Urine Cocaine Screen Neg (Neg) U Cannabinoids Screen Neg (Neg) Serum Alcohol 175 H (0-5) mg/dL
[2018-10-16 07:56] LABS: Anion Gap 8 meq/L (5-15); Blood Urea Nitrogen 5 mg/dL (7-18); Calcium 8.6 mg/dL (8.5-10.1); Carbon Dioxide 26.8 meq/L (21.0-32.0); Chloride 101 meq/L (98-107); Chol/HDL Ratio 2.06 Ratio; Cholesterol 159 mg/dL (120-200); Glomerular Filtration Rate Greater Than 89 mL/min (>89); Glucose,Random 83 mg/dL (74-106); HDL Cholesterol 77.1 mg/dL (40.0-60.0); LDL Cholesterol,Calculated 71 mg/dL (0-99); Potassium 3.6 meq/L (3.5-5.1); Sodium 136 meq/L (136-145); Triglycerides 53 mg/dL (42-150)
[2018-10-16] MEDS: Venlafaxine XR 37.5 MG Capsule PO SCH (14:30)
--- NOTE | 2018-10-16 15:06 | P.HPPSY ---
Provisional Diagnosis Admission Date: October 15, 2018 17:18 [place].: Major depressive disorder Competence Certification of Person's Competence To Provide Express and Informed Consent I have personally examined Praful Moralez, a person being served at [facility] on, October 16, 2018 1506. Express and informed consent means consent voluntarily given in writing, by a competent person, after sufficient explanation and disclosure of the subject matter involved to enable the person to make a knowing and willful decision without any element of force, fraud, deceit, duress, or other form of constraint or coercion. This person is 18 years of age or older, is not now known to be incompetent to consent to treatment with a guardian advocate, and does not have a health care surrogate or proxy currently making medical treatment decisions. I have found this person to be one of the following: [xxx] Competent to provide express and informed consent, as defined above, for voluntary admission to this facility and is competent to provide express and informed consent for treatment. He/she has the consistent capacity to make well reasoned, willful, and knowing decisions concerning his or her medical or mental health treatment. The person fully and consistently understands the purpose of the admission for examination/placement and is fully capable of personally exercising all rights assured under [place] [] Incompetent to provide express and informed consent to voluntary admission, and this is incompetent to provide express and informed consent to treatment. The person must be transferred to involuntary status and a petition for a guardian advocate filed with the Circuit Court. [] Refusing to provide express and informed consent to voluntary admission but is competent to provide express and informed consent for treatment. The person must be discharged or transferred to involuntary status. Form shall be completed within 24 hours of a person's arrival at the receiving facility and filed in the clinical record of each person: 1. Admitted on a voluntary basis 2. Permitted to provide express and informed consent to his/her own treatment 3. Allowed to transfer from involuntary to voluntary status 4. Prior to permitting a person to consent to his or her own treatment after having been previously found incompetent to consent to treatment. 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 Patient was found lying in hospital bed noted with right-sided immobility from hemiplegia, was able to engage in interview adequately today. Patient states that he recently had discord with his family apparently his sister and brother along with feeling "less useful at home" referring to his motor deficits. Patient states that he has been sleeping poorly but noted to be taking naps during the day, with decreased appetite, no change in energy and concentration but did report feeling depressed for the past week as he stated feeling less able to participate in physical activities due to his sequelae from CVA. Patient reports having suicide ideation for the past days stating "tired of living this way"but denies any active plan of wanting to end his life at this time. Patient denying any perceptual services, denies any manic or psychotic symptoms. Patient stated that he has been feeling less motivated with his current mood. Patient denies any SI, HI, AVH or delusions at this time. Family psychiatric history: Denies Past psychiatric history: Denied previous psychiatric diagnoses, denies any previous psychiatric admissions, reports one remote interrupted suicide attempt 30 years ago, no self-injurious behavior, no outpatient mental health provider, no history of abuse. Substance use history: Alcohol use 10-12 beers daily, denying any drug use, reporting tobacco use 1/2 packs/day. Past medical history: CVA 3 years ago with residual right hemiplegia, hyperlipidemia, patient reports history of a seizure secondary to alcohol withdrawal years ago. Allergies: NKDA Social history: , domiciled white, born and raised in [place], , connected to [place], on a routine. Patient has high school education, no asked to firearms. Patient currently on Social Security disability. - Inpatient Certification I certify that the inpatient services were ordered in accordance with Medicare regulations governing the order. This includes certification that hospital inpatient services are reasonable and necessary and in the case of services not specified as inpatient-only under 42 CFR 419.22(n), that they are appropriately provided as inpatient services in accordance to with the 2-midnight benchmark under 43 CFR 412.3(e) I certify that inpatient psychiatric hospital services are medically necessary. Evaluation and treatment and/or diagnostic testing are expected to improve the patient's condition. The patient needs on a daily basis, active treatment furnished directly by or requiring the supervision of inpatient psychiatric facility personnel. Estimated Total Length of Stay (Days): 3 Plans for Post Hospital Care: Home Review of Systems All other systems reviewed negative except as stated in HPI PMFSH - History History Provided By: Patient, Medical Record - Medical History Medical History: Medical History (Last Reviewed 10/15/18 @ 17:25 by HARRIET Maldonado) Hyperlipidemia Seizure Stroke - Surgical History Surgical History: Surgical History (Last Reviewed 10/15/18 @ 17:25 by HARRIET Maldonado) H/O hernia repair - Tobacco History Second Hand Smoke Exposure: Yes Tobacco Use In Past 30 Days: Yes Smoking Status: Current every day smoker Tobacco Type: Cigarettes - Alcohol History How Often Do You Have a Drink Containing Alcohol: 4 or more times a week - Substance Use History Substance History: Active Abuse, Past History - Substance Use Type Alcohol Status: Active Route Used: By Mouth Frequency: 2-3 or more servings per day, every day Last Used: 10/15 Reason for Use: Feels Good Comment: Patient's reports alcohol use has increased after the stroke in 2015, and patient reportedly called the [place] detox in [facility] for treatment in April 2018. Patient reports drinking beer in the morning to help him fall back asleep, drinking beer in the evenings when he watches TV. Patient was arrested with a DUI in both 1984 and 1993 and since then reports being careful not to drink if he's driving. Patient's brother and sister both abuse cocaine and opioids, per report from the patient and his . - Immunization History Tetanus Immunization: Unsure Quality Measures - Psychiatric History Psychological trauma history: Denies Violence risk to others in the last 6 months: low Violence risk to self in the last 6 months: elevated due to recent suicidal ideation - Substance Abuse History Drug or alcohol use in the past 12 months: see HPI - Patient Strengths Patient's strengths (minimum of 2): verbal and communicative Medications and Allergies Active Medications: Active Medications Al Hydrox/Mg Hydrox/Simethicone (Mag-Al Plus Susp Liq) 30 ml PO Q6H PRN PRN Reason: DYSPEPSIA Al Hydroxide/Mg Hydroxide (Milk Of Magnesia Liq) 30 ml PO Q12H PRN PRN Reason: Mild Constipation Diphenhydramine HCl (Benadryl) 50 mg PO HS PRN PRN Reason: INSOMNIA Last Admin: 10/15/18 20:46 Dose: 50 mg Flumazenil (Romazicon Inj) 0.2 mg IV.PUSH Q1M PRN PRN Reason: OVERSEDATION Haloperidol Lactate (Haldol Inj) 1 mg IM Q15M PRN PRN Reason: for severe agitation Hydroxyzine HCl (Atarax) 50 mg PO Q6H PRN PRN Reason: ANXIETY Last Admin: 10/15/18 20:46 Dose: 50 mg Ibuprofen (Motrin) 600 mg PO Q8HR PRN PRN Reason: PAIN SCALE 1 TO 10 Lorazepam (Ativan) 1 mg PO Q4H PRN PRN Reason: for CIWA 8-10 Lorazepam (Ativan Inj) 2 mg IM Q2H PRN PRN Reason: for CIWA 11-14 Lorazepam (Ativan Inj) 2 mg IM Q1H PRN PRN Reason: for CIWA 15-20 Lorazepam (Ativan Inj) 2 mg IM Q15M PRN PRN Reason: for CIWA > 20 Lorazepam (Ativan Inj) 1 mg IM Q4H PRN PRN Reason: for CIWA 8-10 Lorazepam (Ativan) 2 mg PO Q2H PRN PRN Reason: for CIWA 11-14 Nicotine (Habitrol 21 Mg Patch.24 Hr) 1 patch T-DERMAL DAILY [facility] Last Admin: 10/16/18 08:15 Dose: Not Given Venlafaxine HCl (Effexor Xr) 37.5 mg PO DAILY [facility] Last Admin: 10/16/18 14:30 Dose: 37.5 mg Allergies Allergy/AdvReac Type Severity Reaction Status Date / Time No Known Allergies Allergy Verified 10/15/18 16:36 Home Medications Medication Instructions Recorded Confirmed Type aspirin [Janusz Chewable Aspirin] 81 mg PO DAILY 10/15/18 10/15/18 History atorvastatin 40 mg PO DAILY 10/15/18 10/15/18 History multivitamin 1 tab PO DAILY 10/15/18 10/15/18 History omeprazole 20 mg PO BID 10/15/18 10/15/18 History Results - Labs CBC & Chem 7: 10/15/18 14:40 10/16/18 06:25 Labs: Laboratory Results - last 24 hr 10/15/18 10/15/18 10/15/18 14:40 14:40 15:30 WBC 4.2 RBC 4.79 Hgb 16.6 Hct 47.1 MCV 98.5 MCH 34.8 H MCHC 35.3 RDW 14.0 Plt Count 81 L MPV 10.0 Prelim Diff (Auto) Slide review pending Neut % (Auto) 48.2 Lymph % (Auto) 31.9 Schley % (Auto) 16.3 H Eos % (Auto) 2.4 Baso % (Auto) 1.2 Neut # (Auto) 2.0 Lymph # (Auto) 1.3 Schley # (Auto) 0.7 Eos # (Auto) 0.1 Baso # (Auto) 0.1 WBC Differential . Diff Scan Auto diff confirmed Differential Comment . Sodium 128 L Potassium 4.4 Chloride 97 L Carbon Dioxide 21.5 Anion Gap 10 BUN 2 L Creatinine 0.47 L Estimated GFR Greater than 89 Random Glucose 81 Calcium 8.1 L Magnesium 1.9 Total Bilirubin 0.8 AST 265 H ALT 232 H Alkaline Phosphatase 63 Total Protein 7.5 Albumin 3.6 Triglycerides Cholesterol LDL Cholesterol, Calc HDL Cholesterol Cholesterol/HDL Ratio TSH 1.810 Urine Opiates Screen Neg Ur Barbiturates Screen Neg Ur Amphetamines Screen Neg U Benzodiazepines Scrn Neg Urine Cocaine Screen Neg U Cannabinoids Screen Neg Serum Alcohol 175 H 10/16/18 06:25 WBC RBC Hgb Hct MCV MCH MCHC RDW Plt Count MPV Prelim Diff (Auto) Neut % (Auto) Lymph % (Auto) Schley % (Auto) Eos % (Auto) Baso % (Auto) Neut # (Auto) Lymph # (Auto) Schley # (Auto) Eos # (Auto) Baso # (Auto) WBC Differential Diff Scan Differential Comment Sodium 136 Potassium 3.6 D Chloride 101 Carbon Dioxide 26.8 Anion Gap 8 BUN 5 L Creatinine 0.58 L Estimated GFR Greater than 89 Random Glucose 83 Calcium 8.6 Magnesium Total Bilirubin AST ALT Alkaline Phosphatase Total Protein Albumin Triglycerides 53 Cholesterol 159 LDL Cholesterol, Calc 71 HDL Cholesterol 77.1 H Cholesterol/HDL Ratio 2.06 TSH Urine Opiates Screen Ur Barbiturates Screen Ur Amphetamines Screen U Benzodiazepines Scrn Urine Cocaine Screen U Cannabinoids Screen Serum Alcohol Exam Vital signs: Vital Signs 10/15/18 18:00 10/16/18 06:00 Temperature 97.9 F 99.1 F Pulse Rate 85 88 Respiratory Rate 20 16 Blood Pressure 128/79 134/75 Pulse Oximetry 94 L 95 Intake & Output 10/15/18 10/16/18 10/16/18 18:59 06:59 18:59 Intake Total 240 / 240 Balance 240 / 240 Weight 78.925 kg 63.4 kg Intake: Oral 240 / 240 Other: Weight On Admission 63.4 kg Narrative: Patient noted with RT hemiplegia, no tremor or EPS, no psychomotor agitation or retardation - Constitutional no acute distress, cooperative Mental Status Examination Appearance: Appropriate Consciousness: Alert Orientation: x4 Motor Activity: Other (Hemiplegic) Language: Adequate Fund of Knowledge: Adequate Attention and Concentration: Adequate Memory: Unremarkable Mood: Sad Affect: Sad Thought Process & Associations: Intact, Logical, Linear Thought Content: Appropriate Hallucination Type: None Delusion Type: None Suicidal Ideation: Yes (denies but is unreliable to contract for safety at this time.) Suicidal Plan: No Suicidal Intention: No Homicidal Ideation: No Homicidal Plan: No Homicidal Intention: No Insight: Adequate Judgment: Adequate Assessment and Plan - Assessment (1) Major depressive disorder Code(s): F32.9 - Major depressive disorder, single episode, unspecified Status : Acute - Plan Plan: Estimated LOS: [] days Patient is a 53 y/o man, , domiciled with , , who carries a diagnosis of depression, no prior psychiatric admissions, one remote suicide attempt, alcohol use disorder, history of CVA with residual RT hemiplegia who was endorsing anhedonia, poor appetite, depressed mood along with suicidal ideation in the context of alcohol abuse which at this time requires inpatient psychiatric stabilization and for safety. Will start patient on venlafaxine 37.5mg PO daily for depression, currently with elevated LFTs which hospitalist consult is assisting with medical management; input appreciated. Continue to monitor mood and behavior. Patient will be admitted under voluntary status and has capacity to consent for treatment. Discharge planning in progress. Justification for Continued Inpatient Stay: At risk for further decompensation at lower level of care.
[2018-10-16 15:59] LABS: Hemoglobin A1c 5.8 % (4.3-6.0)
[2018-10-17] MEDS: Venlafaxine XR 37.5 MG Capsule PO SCH (08:16)
--- NOTE | 2018-10-17 12:51 | P.PNPSY ---
Subjective Remarks: Patient seen for follow-up, chart reviewed. Discussion with nursing staff reported that patient compliant with medications, denying suicide ideations had mentioned feeling tired of "living this way". Patient was found lying in hospital bed noted to have appropriate affect stating he is feeling "better and that his mood has been good, reports having slept well last evening. Patient noted to have dark urine this morning and was concerned. Patient denies any dysuria or urinary symptoms. Patient reports eating and drinking well. Patient denies any suicide ideations and denies feeling depressed today. Patient was meeting with for visitation which collateral admission for patient's reported that patient was doing well with his previous provider when he had regularly scheduled rehabilitation and upon switching to a different doctor was told that there was nothing else to do with his residual weakness from the stroke at which she states patient began to drink more and becoming less motivated and depressed. She stated that when he was involved and engaged in physical rehab he was more motivated and looking forward to these appointments as it was away for patient also to be out of the house and engage in socialization with other veterans at the [place] clinic at those times. She states she would like to have patient reengage in the sort of rehab she states was beneficial not only physically but also mentally. Review of Systems All other systems reviewed negative except as stated in HPI Mental Status Examination Appearance: Appropriate Consciousness: Alert Orientation: x4 Motor Activity: Other (Hemiplegic) Speech: Unremarkable Language: Adequate Fund of Knowledge: Adequate Attention and Concentration: Adequate Memory: Unremarkable Mood: Good Affect: Appropriate Thought Process & Associations: Intact, Logical, Linear Thought Content: Appropriate Hallucination Type: None Delusion Type: None Suicidal Ideation: Yes (denies but is unreliable to contract for safety at this time.) Suicidal Plan: No Suicidal Intention: No Homicidal Ideation: No Homicidal Plan: No Homicidal Intention: No Insight: Adequate Judgment: Adequate Assessment and Plan - Assessment (1) Major depressive disorder Code(s): F32.9 - Major depressive disorder, single episode, unspecified Status : Acute - Plan Plan: Patient this time denying any suicide ideation reported feeling less depressed and that his mood is improved. Patient also reports having slept better last evening. He patient was concerned about urine noted to be a darker color but states overall feeling better. Patient will be visiting with him this afternoon she has continued concerns of his recent decline in motivation and depression as stated in HPI. We will continue current treatment. We will continue to monitor mood and behavior. Discharge planning in progress. Justification for Continued Inpatient Stay: At risk of further decompensation at lower level care.
[2018-10-17 16:22] LABS: Bilirubin,Urine Negative (Negative); Clarity,Urine Hazy (Clear); Color,Urine Amber (Yellw/Straw); Glucose,Urine (UA) Negative (Negative); Leukocyte Esterase,Urine Negative (Negative); Mucus,Urine Few /lpf (Occasional); Nitrite,Urine Negative (Negative); Specific Gravity,Urine 1.024 (1.002-1.035)
[2018-10-17 16:32] LABS: Urobilinogen,Urine 0.2 mg/dL (Less than 2)
[2018-10-18] MEDS: Venlafaxine XR 37.5 MG Capsule PO SCH (08:22)
--- NOTE | 2018-10-18 14:54 | P.PNPSY ---
Subjective Remarks: Patient seen for follow-up, chart reviewed. Discussion with nursing staff reported that patient was noted to be slightly more agitated this morning, CIWA score of 15 requiring Ativan protocol. Noted to be somewhat confused and forgetful this morning. Patient was found in hospital chair in hallway, noted to be slightly more activated compared to yesterday and would make occasional nonsensical statements appearing confused as well. Patient was able to state that he is alert and oriented to person and date but not to place believing he is in out of the hospital. Patient denies suicidal ideation, denies any difficulty with sleep or appetite but reporting feeling less depressed today. Collateral admission obtained the patient's today expressed her concern of patient being notably more confused and stated that patient has had a history of seizures from alcohol withdrawal years ago. She is concerned of patient will be discharged home but was affirmed that patient will not be discharged until medically stable and psychiatrically stable. Review of Systems All other systems reviewed negative except as stated in HPI Mental Status Examination Appearance: Appropriate Consciousness: Alert Orientation: Person, Date/Time Motor Activity: Other (Hemiplegic) Speech: Unremarkable Language: Adequate Fund of Knowledge: Adequate Attention and Concentration: Adequate Memory: Unremarkable Mood: Good Affect: Appropriate Thought Process & Associations: Intact, Logical, Linear Thought Content: Other (Some nonsensical statements today) Hallucination Type: None Delusion Type: None Suicidal Ideation: Yes (denies but is unreliable to contract for safety at this time.) Suicidal Plan: No Suicidal Intention: No Homicidal Ideation: No Homicidal Plan: No Homicidal Intention: No Insight: Adequate Judgment: Adequate Assessment and Plan - Assessment (1) Major depressive disorder Code(s): F32.9 - Major depressive disorder, single episode, unspecified Status : Acute - Plan Plan: Patient this time noted to have increasing confusion, suspicion of withdrawal symptoms to be increasing, patient will continue CIWA protocol. Patient to continue current treatment. We will continue to monitor mood and behavior. Discharge planning in progress. Justification for Continued Inpatient Stay: At risk of further decompensation at lower level care.
[2018-10-18 16:36] LABS: Alanine Aminotransferase 183 U/L (12-78); Albumin 4.1 g/dL (3.4-5.0); Alkaline Phosphatase 68 U/L (45-117); Anion Gap 9 meq/L (5-15); Aspartate Aminotransferase 154 U/L (15-37); Blood Urea Nitrogen 15 mg/dL (7-18); Calcium 9.1 mg/dL (8.5-10.1); Carbon Dioxide 22.6 meq/L (21.0-32.0); Chloride 109 meq/L (98-107); Glomerular Filtration Rate Greater Than 89 mL/min (>89); Glucose,Random 92 mg/dL (74-106); Potassium 4.3 meq/L (3.5-5.1); Sodium 141 meq/L (136-145); Total Protein 8.5 g/dL (6.4-8.2)
--- NOTE | 2018-10-18 17:53 | P.CONIM ---
History of Present Illness Consult date: 10/18/18 Reason for Consult: Medical management Primary Care Provider: [facility] Chief Complaint: Confusion History of Present Illness: The patient is a 53-year-old male with a past medical history of CVA who presented to the hospital with suicidal ideation. He was admitted to the psychiatry service and is currently undergoing alcohol withdrawal. Medicine was consulted for increasing confusion and elevated liver enzymes. The patient does endorse drinking beers but did not quantify. He also endorses smoking a carton of cigarettes a week. He says he has had seizures from alcohol withdrawal about 20 years ago or so. He was sitting in a chair in the hallway. He was confused and was trying to touch a bird in a cage which was not there. He says he had a stroke and has right sided weakness. He was tremulous and sweaty. He was unable to go into much more detail with his history. FH: Unable to obtain at this time. Review of Systems Review of Systems: all other systems reviewed are negative ROS Unobtainable: unobtainable due to mental status PMFSH Medical History Medical History Alcohol abuse (Acute) Hyperlipidemia (Acute) Seizure (Acute) Stroke (Acute) Surgical History Surgical History H/O hernia repair (Acute) Social History Social History Substance History: Active Abuse and Past History Second Hand Smoke Exposure: Yes Smoking Status: Current every day smoker Tobacco Type: Cigarettes How Often Do You Have a Drink Containing Alcohol: 4 or more times a week Substance Abuse Detail Alcohol: Substance Use Status: Active Route Used Substance Abuse: By Mouth Substance Frequency: 2-3 or more servings per day, every day Last Used: 10/15 Substance Abuse Comment: Patient's reports alcohol use has increased after the stroke in 2015, and patient reportedly called the [facility] detox in [facility] for treatment in April 2018. Patient reports drinking beer in the morning to help him fall back asleep, drinking beer in the evenings when he watches TV. Patient was arrested with a DUI in both 1984 and 1993 and since then reports being careful not to drink if he's driving. Patient's brother and sister both abuse cocaine and opioids, per report from the patient and his . Reason for Use: Feels Good Immunization History Tetanus Immunization: Unsure Medications and Allergies Allergies Allergy/AdvReac Type Severity Reaction Status Date / Time No Known Allergies Allergy Verified 10/15/18 16:36 Home Medications Medication Instructions Recorded Confirmed Type aspirin [Janusz Chewable Aspirin] 81 mg PO DAILY 10/15/18 10/15/18 History atorvastatin 40 mg PO DAILY 10/15/18 10/15/18 History multivitamin 1 tab PO DAILY 10/15/18 10/15/18 History omeprazole 20 mg PO BID 10/15/18 10/15/18 History Active Medications: Active Medications Al Hydrox/Mg Hydrox/Simethicone (Mag-Al Plus Susp Liq) 30 ml PO Q6H PRN PRN Reason: DYSPEPSIA Al Hydroxide/Mg Hydroxide (Milk Of Magnesia Liq) 30 ml PO Q12H PRN PRN Reason: Mild Constipation Diphenhydramine HCl (Benadryl) 50 mg PO HS PRN PRN Reason: INSOMNIA Last Admin: 10/17/18 20:41 Dose: 50 mg Flumazenil (Romazicon Inj) 0.2 mg IV.PUSH Q1M PRN PRN Reason: OVERSEDATION Haloperidol Lactate (Haldol Inj) 1 mg IM Q15M PRN PRN Reason: for severe agitation Hydroxyzine HCl (Atarax) 50 mg PO Q6H PRN PRN Reason: ANXIETY Last Admin: 10/17/18 20:41 Dose: 50 mg Sodium Chloride (1/2 Normal Saline Inj) 1,000 mls @ 100 mls/hr IV.CONT .Q10H NATALIE Stop: 10/19/18 13:46 Ibuprofen (Motrin) 600 mg PO Q8HR PRN PRN Reason: PAIN SCALE 1 TO 10 Lactulose (Lactulose Liq) 30 ml PO TID NATALIE Lorazepam (Ativan) 1 mg PO Q4H PRN PRN Reason: for CIWA 8-10 Last Admin: 10/18/18 08:22 Dose: 1 mg Lorazepam (Ativan Inj) 2 mg IM Q2H PRN PRN Reason: for CIWA 11-14 Lorazepam (Ativan Inj) 2 mg IM Q1H PRN PRN Reason: for CIWA 15-20 Lorazepam (Ativan Inj) 2 mg IM Q15M PRN PRN Reason: for CIWA > 20 Lorazepam (Ativan Inj) 1 mg IM Q4H PRN PRN Reason: for CIWA 8-10 Lorazepam (Ativan) 2 mg PO Q2H PRN PRN Reason: for CIWA 11-14 Last Admin: 10/18/18 17:27 Dose: 2 mg Nicotine (Habitrol 21 Mg Patch.24 Hr) 1 patch T-DERMAL DAILY [facility] Last Admin: 10/18/18 08:21 Dose: Not Given Venlafaxine HCl (Effexor Xr) 37.5 mg PO DAILY [facility] Last Admin: 10/18/18 08:22 Dose: 37.5 mg Physical Exam Vital signs: Vital Signs 10/17/18 17:54 10/18/18 06:00 Temperature 96.7 F L 98.3 F Pulse Rate 87 93 H Respiratory Rate 18 16 Blood Pressure 136/94 H 147/92 H Pulse Oximetry 94 L 92 L Intake & Output 10/17/18 10/18/18 10/18/18 18:59 06:59 18:59 Intake Total 1440 / 1440 Balance 1440 / 1440 Intake: Oral 1440 / 1440 Other: # Voids 2 Narrative: GENERAL: Tremulous, diaphoretic. SKIN: Focused skin assessment warm/dry. HEAD: Atraumatic. Normocephalic. EYES: Pupils equal and round. No scleral icterus. No injection or drainage. ENT: No nasal bleeding or discharge. Mucous membranes pink and moist. NECK: Trachea midline. No JVD. CARDIOVASCULAR: Tachycardic. No murmur appreciated. RESPIRATORY: No accessory muscle use. Clear to auscultation. Breath sounds equal bilaterally. GASTROINTESTINAL: Abdomen soft, non-tender, nondistended. Hepatic and splenic margins not palpable. MUSCULOSKELETAL: No obvious deformities. No clubbing. No cyanosis. No edema. NEUROLOGICAL: Awake, confused. No obvious cranial nerve deficits. Has right sided weakness in the upper and lower extremities. Normal speech. Results Labs CBC & Chem 7: 10/15/18 14:40 10/18/18 15:45 Assessment and Plan (1) Major depressive disorder: Code(s): F32.9 - Major depressive disorder, single episode, unspecified Status: Acute Plan Acute alcohol withdrawal The patient is currently tachycardic, tremulous, confused and diaphoretic. He was started on CIWA protocol. -continue CIWA protocol. -IVFs. -alcohol cessation instruction. Elevated LFTs Likely s/t alcohol abuse. -trend LFTs. -check a hepatitis profile. -IVFs. Acute metabolic encephalopathy Secondary to acute alcohol withdrawal and hyperammonemia. -start lactulose standing. -check a B12 level. -treatment as above. Suicidal ideation The pt presented as a Torrez Act. -management per psych. CVA With right sided weakness. -resume ASA. -hold statin in setting of elevated LFTs. -PT eval. PPx: Ambulation _ (1) Major depressive disorder Qualifiers: Major depression recurrence: Active/Remission status: Major depression episode severity: Psychotic features:
[2018-10-18] MEDS: Sodium Chloride 0.45 % Inj 1,000 ML IV.CONT SCH (21:12)
[2018-10-18] MEDS: Pantoprazole Sodium 20 MG DR Tablet PO SCH (21:12)
[2018-10-18 23:57] LABS: Hepatitis A IgM Antibody Nonreactive (Nonreactive); Hepatitits B Surface Antigen Nonreactive (Nonreactive)
[2018-10-19] MEDS: Sodium Chloride 0.45 % Inj 1,000 ML IV.CONT SCH (08:43)
[2018-10-19 09:33] LABS: Baso # (Auto) 0.1 th/mm3 (0.0-0.2); Eos # (Auto) 0.1 th/mm3 (0.0-0.4); Eos % (Auto) 2.3 % (0.0-4.0); Hematocrit 45.4 % (39.0-51.0); Hemoglobin 15.7 gm/dL (13.0-17.0); Lymph # (Auto) 1.2 th/mm3 (1.0-4.8); Lymph % (Auto) 27.1 % (9.0-44.0); Mean Corpuscular HGB Conc 34.6 % (32.0-36.0); Mean Corpuscular Hemoglobin 33.7 pg (27.0-34.0); Mean Corpuscular Volume 97.5 fL (80.0-100.0); Mean Platelet Volume 9.3 fL (7.0-11.0); Mono # (Auto) 0.7 th/mm3 (0.0-0.9); Mono % (Auto) 15.7 % (0.0-8.0); Neut # (Auto) 2.4 th/mm3 (1.8-7.7); Neut % (Auto) 52.9 % (16.0-70.0); Platelet Count 114 th/mm3 (150-450); Red Blood Count 4.65 mil/mm3 (4.50-5.90); Red Cell Distribution Width 13.8 % (11.6-17.2); White Blood Count 4.6 th/mm3 (4.0-11.0)
[2018-10-19] MEDS: Pantoprazole Sodium 20 MG DR Tablet PO SCH ×2 (09:43→22:04)
[2018-10-19] MEDS: Venlafaxine XR 37.5 MG Capsule PO SCH (09:44)
[2018-10-19 10:09] LABS: Albumin 3.4 g/dL (3.4-5.0); Anion Gap 8 meq/L (5-15); Aspartate Aminotransferase 124 U/L (15-37); Blood Urea Nitrogen 16 mg/dL (7-18); Carbon Dioxide 25.2 meq/L (21.0-32.0); Chloride 108 meq/L (98-107); Glomerular Filtration Rate Greater Than 89 mL/min (>89); Glucose,Random 112 mg/dL (74-106); Potassium 3.6 meq/L (3.5-5.1); Sodium 141 meq/L (136-145)
[2018-10-19 10:13] LABS: Alanine Aminotransferase 153 U/L (12-78); Alkaline Phosphatase 57 U/L (45-117)
--- NOTE | 2018-10-19 13:33 | P.PNIM ---
Physical Exam Vital signs: Vital Signs 10/18/18 18:00 10/18/18 18:40 10/19/18 05:30 Temperature 97.3 F L 98.3 F Pulse Rate 110 H 89 Respiratory Rate 20 16 Blood Pressure 130/76 128/84 Pulse Oximetry 97 Intake & Output 10/18/18 10/19/18 10/19/18 18:59 06:59 18:59 Intake Total 0 / 0 1360 / 1360 Balance 0 / 0 1360 / 1360 Intake: IV 1000 / 1000 1/2 Normal Saline Inj 1,000 ML 1000 / 1000 @ 100 mls/hr IV.CONT .Q10H NATALIE Rx#:[id number] Oral 0 / 0 360 / 360 Oral Supplement 0 / 0 Other: # Voids 1 Narrative: GENERAL: Well-nourished well-developed male with mild tremors, laying in bed in no acute distress CARDIOVASCULAR: Regular rate and rhythm RESPIRATORY: No accessory muscle use. Clear to auscultation. Breath sounds equal bilaterally. GASTROINTESTINAL: Abdomen soft, non-tender, nondistended. Hepatic and splenic margins not palpable. MUSCULOSKELETAL: No obvious deformities. No clubbing. No cyanosis. No edema. NEUROLOGICAL: Awake and alert to person, place, time but not to situation with still mild confusion ; no obvious cranial nerve deficits. Has right sided weakness in the upper and lower extremities. Left upper and lower extremities 5 out of 5, normal speech. Results Labs CBC & Chem 7: 10/19/18 08:56 10/19/18 08:56 Assessment and Plan (1) Major depressive disorder: Code(s): F32.9 - Major depressive disorder, single episode, unspecified Status: Acute Plan 53-year-old male admitted to psychiatric unit under a Torrez act with suicidal ideation Major depressive disordertreatment per psychiatry, Effexor Acute alcohol withdrawalcontinue [facility], alcohol cessation counseling provided Elevated transaminases due to history of alcohol abuselevels trended down Hepatitis profile negative Acute metabolic encephalopathy due to acute alcohol withdrawal and hyperammonemia Lactulose Mental status improved overnight. History of CVA with right-sided weakness Continue aspirin Statin on hold due to elevated liver function test Continue physical therapy Tobacco usecessation counseling continue nicotine patch _ (1) Major depressive disorder Qualifiers: Major depression recurrence: Active/Remission status: Major depression episode severity: Psychotic features:
--- NOTE | 2018-10-19 16:10 | P.PNPSY ---
Subjective Remarks: Patient seen for follow-up, chart reviewed. Discussion with nursing staff reported that patient continues on IV fluids, poor sleep continues with elevated score on CIWA, less confused today. Patient was found lying on hospital bed, noted with less diaphoresis, with at bedside, noted to be less confused, less restless. He states feeling better and aware that he was confused yesterday. He states that he does not have thoughts of wanting to end his life and that he simply stated feeling tired of living like this. He mentions that he wants to engage in activities, "try something different". Review of Systems All other systems reviewed negative except as stated in HPI Mental Status Examination Appearance: Appropriate Consciousness: Alert Orientation: Person, Place, Date/Time Motor Activity: Other (Hemiplegic) Speech: Unremarkable Language: Adequate Fund of Knowledge: Adequate Attention and Concentration: Adequate Memory: Unremarkable Mood: Good Affect: Appropriate Thought Process & Associations: Intact, Logical, Linear Thought Content: Appropriate Hallucination Type: None Delusion Type: None Suicidal Ideation: Yes (denies but is unreliable to contract for safety at this time.) Suicidal Plan: No Suicidal Intention: No Homicidal Ideation: No Homicidal Plan: No Homicidal Intention: No Insight: Adequate Judgment: Adequate Assessment and Plan - Assessment (1) Major depressive disorder Code(s): F32.9 - Major depressive disorder, single episode, unspecified Status : Acute - Plan Plan: Patient continues to have active withdrawal, continue CIWA protocol. Patient noted with less confusion today, continues with improvement with mood, denies active SI. Continue current treament, continue to monitor mood and behavior. Continue recommendations as per primary medical team. Discharge planning in progress. Justification for Continued Inpatient Stay: At risk for further decompensatino at lower level of care.
[2018-10-20] MEDS: Pantoprazole Sodium 20 MG DR Tablet PO SCH ×2 (08:15→22:44)
[2018-10-20] MEDS: Venlafaxine XR 37.5 MG Capsule PO SCH (08:15)
--- NOTE | 2018-10-20 12:27 | P.PNIM ---
Subjective Interval history: Follow-up for encephalopathy, altered mental status, transaminitis, alcohol withdrawal. Patient is seen sitting upright in bed. He is awake, alert, oriented to person, place, date, time and events. He reports feeling much better today. He remembers feeling very confused 2 days ago, however this has improved, and he feels back to baseline. He states he had multiple loose bowel movements yesterday, also improved today. Denies any abdominal pain, nausea, or vomiting. He is tolerating oral intake. Denies fevers or chills. Denies any headache, lightheadedness, dizziness, chest pain, shortness of breath. He states he has been told he had elevated liver enzymes in the past, however then they went back to normal. He states he previously had a liver ultrasound that was unremarkable. He has no other medical complaints at this time. Physical Exam Vital signs: Vital Signs 10/19/18 17:59 10/20/18 06:00 Temperature 98.6 F 98.1 F Pulse Rate 64 100 H Respiratory Rate 18 18 Blood Pressure 122/89 135/83 Pulse Oximetry 97 97 Intake & Output 10/19/18 10/20/18 10/20/18 18:59 06:59 18:59 Intake Total 1840 / 1840 960 / 960 Balance 1840 / 1840 960 / 960 Intake: IV 1000 / 1000 1/2 Normal Saline Inj 1,000 ML 1000 / 1000 @ 100 mls/hr IV.CONT .Q10H NATALIE Rx#:[id number] Oral 840 / 840 960 / 960 Other: # Urine Diapers 5 Date of Last Bowel Movement 10/19/18 10/19/18 # Bowel Movements 1 Narrative: GENERAL: Well-nourished, well-developed very pleasant middle-age male patient in [facility]. SKIN: Warm and dry. No rash. HEENT: No scleral icterus. Mucous membranes pink and moist. CARDIOVASCULAR: Regular rate and rhythm. No murmur appreciated. RESPIRATORY: No accessory muscle use. Clear to auscultation. Breath sounds equal bilaterally. GASTROINTESTINAL: Abdomen soft, non-tender, nondistended. Normoactive bowel sounds x4. MUSCULOSKELETAL: No obvious deformities. Extremities without clubbing, cyanosis , or edema. NEUROLOGICAL: AAO x4. 5/5 left upper and lower extremity strength however 0-1/5 right upper and lower extremity strength with contracture of the right hand and arm. Normal speech. PSYCHIATRIC: Appropriate mood and affect; insight and judgment normal. Results Labs CBC & Chem 7: 10/19/18 08:56 10/19/18 08:56 Assessment and Plan (1) Major depressive disorder: Code(s): F32.9 - Major depressive disorder, single episode, unspecified Status: Acute Plan 53-year-old male admitted to psychiatric unit under a Torrez act with suicidal ideation Major depressive disorder: Acute -Continue treatment per psychiatry -Currently on Effexor Acute alcohol withdrawal: Patient drinks 1012 beers daily -continue CIOH protocol -continue thiamine/folate/MV -alcohol cessation counseling provided -Improving, non-tremulous today Transaminitis: Possibly secondary to alcohol abuse, rule out other etiologies such as mass vs hepatitis -Hepatitis panel negative -Check liver ultrasound and AFP -Avoid hepatotoxins -Monitor CMP, slowly improving Acute metabolic encephalopathy: Suspect secondary to hepatic encephalopathy and acute alcohol withdrawal -Ammonia level elevated at 45 -Started on lactulose 30mls 3 times daily -titrate to 3 bowel movements daily -Patient had multiple BMs on 10/19, mental status now significantly improved, AAO x4 History of CVA: chornic, with residual right-sided weakness -Continue patient's aspirin -Statin on hold due to elevated LFTs -Continue physical therapy- patient reports he is nonambulatory Tobacco use: chronic -counseled on cessation -continue nicotine patch Thrombocytopenia: suspect secondary to alcohol use -monitor, no signs of bleeding DVT Prophylaxis: avoid chemical prophylaxis with thrombocytopenia _ (1) Major depressive disorder Qualifiers: Active/Remission status: Major depression episode severity: Major depression recurrence: Psychotic features:
--- NOTE | 2018-10-20 12:31 | P.PNPSY ---
Subjective Chief Complaint: Follow-up treatment of depression and alcohol withdrawal Remarks: Patient seen for follow-up, chart reviewed, patient discussed with nursing staff ; we reviewed the patient's mood, thoughts, and behaviors from overnight and this morning. Nurse reports the patient slept approximately 6 hours overnight and seems to be doing much better, his CIWA scores today have been 0. Patient was seen at bedside where he was sitting up watching TV. He reports "decent sleep" and denies feeling any alcohol withdrawal symptoms. Patient also denies feeling depressed or anxious and he expressed sincere motivation for his recovery and discharge plans on Monday. Mental Status Examination Appearance: Appropriate Consciousness: Alert Orientation: Person, Place, Date/Time Motor Activity: Other (Hemiplegic) Speech: Unremarkable Language: Adequate Fund of Knowledge: Adequate Attention and Concentration: Adequate Memory: Unremarkable Mood: Good Affect: Appropriate Thought Process & Associations: Intact, Logical, Linear Thought Content: Appropriate Hallucination Type: None Delusion Type: None Suicidal Ideation: No Suicidal Plan: No Suicidal Intention: No Homicidal Ideation: No Homicidal Plan: No Homicidal Intention: No Insight: Adequate Judgment: Adequate Assessment and Plan - Assessment (1) Major depressive disorder Code(s): F32.9 - Major depressive disorder, single episode, unspecified Status : Acute - Plan Plan: October 20, 2018: Good response to treatment as the patient no longer demonstrating symptoms of alcohol withdrawal and he is reporting significant improvement in his mood and anxiety. Seems to be tolerating the medications and motivated for recovery. Continue current inpatient treatment plan with anticipated discharge on Monday. Justification for Continued Inpatient Stay: Patient remains an elevated risk for self-harm by acting out on self-injurious impulses and will require further inpatient stabilization and preparation of a safe discharge plan. Moving patient to a less restrictive environment at this time may result in decompensation.
[2018-10-20] MEDS: Folic Acid 1 MG Tablet PO SCH ×2 (17:19→17:35)
--- NOTE | 2018-10-21 07:49 | P.PNIM ---
Subjective Interval history: Follow-up for encephalopathy, altered mental status, transaminitis, alcohol withdrawal. The patient reports feeling well today. He is AAOx4. He denies any specific medical complaints. He is tolerating oral intake. He has been having some loose stools secondary to lactulose, recommending titrating lactulose to having 3 BMs daily. No other concerns reported. Physical Exam Vital signs: Vital Signs 10/20/18 17:29 10/21/18 06:08 Temperature 97.2 F L 99 F Pulse Rate 89 76 Respiratory Rate 16 18 Blood Pressure 140/81 144/85 H Pulse Oximetry 96 95 Intake & Output 10/20/18 10/21/18 10/21/18 18:59 06:59 18:59 Intake Total 2159 Balance 2159 Intake: Oral 2159 Other: Date of Last Bowel Movement 10/19/18 Narrative: GENERAL: Well-nourished, well-developed very pleasant middle-age male patient in [facility]. SKIN: Warm and dry. No rash. CARDIOVASCULAR: Regular rate and rhythm. No murmur appreciated. RESPIRATORY: No accessory muscle use. Clear to auscultation. Breath sounds equal bilaterally. GASTROINTESTINAL: Abdomen soft, non-tender, nondistended. Normoactive bowel sounds x4. MUSCULOSKELETAL: No obvious deformities. Extremities without clubbing, cyanosis , or edema. NEUROLOGICAL: AAO x4. 5/5 left upper and lower extremity strength however 0-1/5 right upper and lower extremity strength with contracture of the right hand and arm. Normal speech. PSYCHIATRIC: Appropriate mood and affect; insight and judgment normal. Results Labs CBC & Chem 7: 10/19/18 08:56 10/21/18 09:15 Assessment and Plan (1) Major depressive disorder: Code(s): F32.9 - Major depressive disorder, single episode, unspecified Status: Acute Plan 53-year-old male admitted to psychiatric unit under a Torrez act with suicidal ideation Major depressive disorder: Acute -Continue treatment per psychiatry -Currently on Effexor Acute alcohol withdrawal: Patient drinks 1012 beers daily -continue [facility] protocol -continue thiamine/folate/MV -alcohol cessation counseling provided -Improving, non-tremulous, no current signs of withdrawal Transaminitis: Possibly secondary to alcohol abuse, rule out other etiologies such as mass vs hepatitis -Hepatitis panel negative -Liver U/S unremarkable -AFP wnl -Avoid hepatotoxins -Monitor CMP, slowly improving Acute metabolic encephalopathy: Suspect secondary to hepatic encephalopathy and acute alcohol withdrawal -Ammonia level elevated at 45 -Started on lactulose 30mls 3 times daily -titrate to 3 bowel movements daily -Patient had multiple BMs on 10/19, mental status now significantly improved, AAO x4 -having loose stools, discussed with RN to titrate lactulose to 3 BMs daily. 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
--- NOTE | 2018-10-21 08:45 | US ---
EXAM DATE: 10/21/2018 8:41 AM EST AGE/SEX: 53 years / Male INDICATIONS: Elevated lab values. CLINICAL DATA: This is the patient's initial encounter. Patient reports that signs and symptoms have been present for 1 day and indicates a pain score of 2/10. MEDICAL/SURGICAL HISTORY: . Alcohol abuse. Hyperlipidemia. Seizure. Stroke. . Hernia repair. COMPARISON: No prior exams available for comparison. MEASUREMENTS: Liver:__ 15.8 cm. Common Bile Duct:__ 5mm. Right Kidney:__ 11.3 x 5.6 x 6.1 cm. FINDINGS: Liver: Normal echogenicity without focal lesion or ductal dilatation. Portal Vein: Hepatopedal flow seen in portal vein. Common Duct: No intraluminal mass or stone visualized. Gallbladder: Demonstrates no wall thickening or pericholecystic fluid. No stones visualized. Pancreas: Not well visualized because of bowel gas. Right Kidney: Normal echogenicity and cortical thickness. No mass or hydronephrosis. Other: None. CONCLUSION: 1. No intrahepatic biliary duct dilatation. No gallstones Electronically signed by: Tyron Winn MD Board Certified Radiologist 10/21/2018 8:43 AM EST
[2018-10-21] MEDS: Pantoprazole Sodium 20 MG DR Tablet PO SCH ×2 (09:32→21:20)
[2018-10-21] MEDS: Folic Acid 1 MG Tablet PO SCH (09:32)
[2018-10-21] MEDS: Venlafaxine XR 37.5 MG Capsule PO SCH (09:32)
[2018-10-21 10:10] LABS: Albumin 3.2 g/dL (3.4-5.0); Anion Gap 12 meq/L (5-15); Aspartate Aminotransferase 79 U/L (15-37); Blood Urea Nitrogen 6 mg/dL (7-18); Calcium 8.5 mg/dL (8.5-10.1); Carbon Dioxide 20.4 meq/L (21.0-32.0); Chloride 103 meq/L (98-107); Glomerular Filtration Rate Greater Than 89 mL/min (>89); Glucose,Random 125 mg/dL (74-106); Potassium 3.4 meq/L (3.5-5.1); Sodium 135 meq/L (136-145)
[2018-10-21 10:11] LABS: Alanine Aminotransferase 123 U/L (12-78)
[2018-10-21 10:13] LABS: Alkaline Phosphatase 55 U/L (45-117); Total Protein 6.8 g/dL (6.4-8.2)
--- NOTE | 2018-10-21 13:18 | P.PNPSY ---
Subjective Chief Complaint: Follow-up treatment of depression and alcohol withdrawal Remarks: Reviewed electronic medical record and discussed with nursing staff. Patient in his bed watching television. States that he feels alot better. Mood is euthymic. CIWA has been zero. Patient feels like he is making progress. Endorses that he is sleeping and eating well. Denies SI/HI. Review of Systems All other systems reviewed negative except as stated in HPI Mental Status Examination Appearance: Appropriate Consciousness: Alert Orientation: Person, Place, Date/Time Motor Activity: Other (Hemiplegic) Speech: Unremarkable Language: Adequate Fund of Knowledge: Adequate Attention and Concentration: Adequate Memory: Unremarkable Mood: Good Affect: Appropriate Thought Process & Associations: Intact, Logical, Linear Thought Content: Appropriate Hallucination Type: None Delusion Type: None Suicidal Ideation: No Suicidal Plan: No Suicidal Intention: No Homicidal Ideation: No Homicidal Plan: No Homicidal Intention: No Insight: Adequate Judgment: Adequate Assessment and Plan - Assessment (1) Major depressive disorder Code(s): F32.9 - Major depressive disorder, single episode, unspecified Status : Acute - Plan Plan: October 20, 2018: Good response to treatment as the patient no longer demonstrating symptoms of alcohol withdrawal and he is reporting significant improvement in his mood and anxiety. Seems to be tolerating the medications and motivated for recovery. Continue current inpatient treatment plan with anticipated discharge on Monday. October 21, 2018 patient feels like he is making progress. CIWA zero. Mood is euthymic today. Justification for Continued Inpatient Stay: Moving patient to a less restrictive environment may result in his decompensation.
[2018-10-21 18:04] VITALS: TEMP 97.1; O2SAT 98
[2018-10-22 05:35] VITALS: BP 135/82; PULSE 80; RESP 16
[2018-10-22] MEDS: Pantoprazole Sodium 20 MG DR Tablet PO SCH (08:58)
[2018-10-22] MEDS: Folic Acid 1 MG Tablet PO SCH (08:58)
[2018-10-22] MEDS: Venlafaxine XR 37.5 MG Capsule PO SCH (08:58)
--- NOTE | 2018-10-22 11:58 | P.DCO ---
- Physical Therapy Order: Evaluate and treat - Occupational Therapy Order: Evaluate and treat - Home Health Nursing Order: Medication education-adverse effect - Case Management Consult Case Management Consult-Home Health: Yes - Certification I have seen patient Praful Moralez on 10/22/18. My clinical findings support the need for the requested home health care services because: Limited mobility due to disease progression, Limited ability to care for self I certify that my clinical findings support that this patient is homebound because: Unsteady gait/balance, Unsafe to leave home unassisted, Non-ambulatory: confined to bed or chair
--- NOTE | 2018-10-22 15:17 | P.DSPSY ---
Psychiatry Discharge Summary Inpatient Psychiatric care?: Yes Advance Directives: Yes Mental Health Advance Directive: No Health Care Proxy: No - Admission Admission Date: October 15, 2018 17:18 - Admission Diagnosis (1) Major depressive disorder Code(s): F32.9 - Major depressive disorder, single episode, unspecified Brief History: Patient is a 53-year-old man, , domiciled with , , with no past psychiatric history as per patient, no previous psychiatric diagnoses, hospitalizations, one previous suicide attempt 30 years ago, no outpatient mental health provider, no history of self-injurious behavior, with a substance use history of daily alcohol use, with a past medical history significant for 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 Patient was found lying in hospital bed noted with right-sided immobility from hemiplegia, was able to engage in interview adequately today. Patient states that he recently had discord with his family apparently his sister and brother along with feeling "less useful at home" referring to his motor deficits. Patient states that he has been sleeping poorly but noted to be taking naps during the day, with decreased appetite, no change in energy and concentration but did report feeling depressed for the past week as he stated feeling less able to participate in physical activities due to his sequelae from CVA. Patient reports having suicide ideation for the past days stating "tired of living this way"but denies any active plan of wanting to end his life at this time. Patient denying any perceptual services, denies any manic or psychotic symptoms. Patient stated that he has been feeling less motivated with his current mood. Patient denies any SI, HI, AVH or delusions at this time. Family psychiatric history: Denies Past psychiatric history: Denied previous psychiatric diagnoses, denies any previous psychiatric admissions, reports one remote interrupted suicide attempt 30 years ago, no self-injurious behavior, no outpatient mental health provider, no history of abuse. Substance use history: Alcohol use 10-12 beers daily, denying any drug use, reporting tobacco use 1/2 packs/day. Past medical history: CVA 3 years ago with residual right hemiplegia, hyperlipidemia, patient reports history of a seizure secondary to alcohol withdrawal years ago. Allergies: NKDA Social history: , domiciled white, born and raised in [place], , [facility], [facility]. Patient has high school education, no asked to firearms. Patient currently on Social Security disability. 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 Patient was admitted to a locked, inpatient psychiatric unit. Appropriate precautions were in place throughout patient's hospital stay. Patient was seen and examined on the unit by psychiatry. Psychotropic medications were adjusted. There was no evidence of any suicidality or homicidality on the inpatient unit. Patient's mood improved with the benefit of psychopharmacological treatment, had no behavioral disturbance since admission and withdrawal symptoms were managed with [facility] protocol. Patient was noted to have reached stable mood, ceased to have withdrawal sympotms, noted to participate and engage in treatment and interact with staff adequately. Patient noted to be future oriented with plans to continue treatment and outpatient follow-up appointments for continuity of care. Counselor has arranged discharge plan which patient will be discharged back to 's care [facility]. On the day of discharge: Patient seen and examined; chart reviewed. Case discussed with nurse and counselor. No behavioral issues overnight. On my examination today, the patient denies any suicidal homicidal ideation, intent or plan on direct questioning and contracts for safety. Patient denies any perceptional disturbances and no delusional material verbalized today. Patient denies any side effects from medication and has understanding of medication regimen and education. No physical complaints. Suicide and violence risk assessment on day of discharge both suggest lower imminent risk, and the patient's level of function is adequate for plan level of outpatient care. Patient has maximized benefit from this inpatient psychiatric hospital stay and will be discharged with discharge plan as arranged by counselor. Patient advised to return to psychiatric emergency room for any concerning psychiatric symptoms. Patient agrees with plan. Discharge medications: - venlafaxine 37.5mg PO daily - thiamine 100mg PO daily - multivitamin one tab PO daily - pantoprazole 20mg PO daily - folic acid 1mg PO daily - ASA 81mg PO daily - Discharge Discharge Date: 10/22/18 - Discharge Diagnosis (1) Major depressive disorder Code(s): F32.9 - Major depressive disorder, single episode, unspecified Status : Acute Discharge Disposition: Home - Discharge Instructions Discharge Diet: Heart Healthy Diet Activities You Can Perform: Weight Bearing As Tolerat - Discharge Time > 30 minutes Mental Status Examination Appearance: Appropriate Consciousness: Alert Orientation: Person, Place, Date/Time Motor Activity: Other (Hemiplegic) Speech: Unremarkable Language: Adequate Fund of Knowledge: Adequate Attention and Concentration: Adequate Memory: Unremarkable Mood: Good Affect: Appropriate Thought Process & Associations: Intact, Logical, Goal directed, Linear Thought Content: Appropriate Hallucination Type: None Delusion Type: None Suicidal Ideation: No Suicidal Plan: No Suicidal Intention: No Homicidal Ideation: No Homicidal Plan: No Homicidal Intention: No Insight: Adequate Judgment: Adequate Discharge/Advance Care Plan - Results Vital Signs: Last Vital Signs Temp 97.1 F L 10/22/18 05:34 Pulse 80 10/22/18 05:34 Resp 16 10/22/18 05:34 BP 135/82 10/22/18 05:34 Pulse Ox 98 10/22/18 05:34 Lab Results: Laboratory Results Hemoglobin A1c 5.8 % (4.3-6.0) 10/16/18 06:25 Triglycerides 53 mg/dL (42-150) 10/16/18 06:25 Cholesterol 159 mg/dL (120-200) 10/16/18 06:25 LDL Cholesterol, Calc 71 mg/dL (0-99) 10/16/18 06:25 HDL Cholesterol 77.1 mg/dL (40.0-60.0) H 10/16/18 06:25 TSH 1.810 uIU/mL (0.358-3.740) 10/15/18 14:40 Summary of Procedures: none Imaging: ITS Impressions Liver Ultrasound 10/21/18 00:00 CONCLUSION: 1. No intrahepatic biliary duct dilatation. No gallstones Pending Results: None - Medications Number of antipsychotic medications at discharge: 0 - Discharge Care Plan Goals to Promote Your Health: * To prevent worsening of your condition and complications * To maintain your health at the optimal level Directions to Meet Your Goals: Take your medications as prescribed Follow your dietary instruction Follow activity as directed Keep your appointments as scheduled Take your immunizations and boosters as scheduled If your symptoms worsen call your PCP, if no PCP go to Urgent Care Center or Emergency Room For 20/03 questions related to your inpatient stay or results of tests pending at discharge, please contact Dr. Darren Glez MD at Smoking is Dangerous to Your Health. Avoid second hand smoking
== END 2018-10-22 12:45 | disposition home or self-care (01) | DRG 881 ==
LOC: NEPB 13:43 → NEDA 17:18 → H4EA 20:19
PROVIDERS: ADMIT Student in an Organized Health Care Education/Training Program; ATTEND Student in an Organized Health Care Education/Training Program
CPT/HCPCS: 76705; 80048; 80053; 80061; 80074; 80076; 80307; 81001; 82105; 82140; 82607; 83036; 83735; 84443; 85025; 97162; 99285; J2060; Q0163